=== PATIENT | female | born 1995 | race Caucasian/White ===

== ENCOUNTER 2020-09-07 14:11 | Emergency (ER) | payer SELFPAY ==
[2020-09-07 14:31] VITALS: BP 120/76; PULSE 103; RESP 20; TEMP 37.6; O2SAT 100
--- NOTE | 2020-09-07 15:21 | ED.SKABFB ---
HPI - Skin/Abscess/Foreign Bdy General Chief complaint: Skin/Abscess/Foreign Body Stated complaint: Boil on Stomach Time Seen by Provider: 09/07/20 14:35 Source: patient and RN notes reviewed Mode of arrival: ambulatory Limitations: no limitations History of Present Illness HPI narrative: Patient presents today complaining of redness and pain to her left lower abdomen x3 to 4 days. Reports the area continues to worsen since onset. Currently rates her pain 8/10. States she had a similar area 3 to 4 months ago that resolved on its own without any intervention. Denies history of boils, staph infections, MRSA. She has not tried any at home interventions prior to arrival. MD complaint: abscess/boil Related Data Home Medications Medication Instructions Recorded Confirmed Wellbutrin 09/07/20 acyclovir 09/07/20 lamotrigine 09/07/20 Allergies Allergy/AdvReac Type Severity Reaction Status Date / Time No Known Allergies Allergy Verified 09/07/20 14:26 Review of Systems Review of Systems: Narrative: CONSTITUTIONAL: Denies body aches, fever, chills, or sweats. EYES: Denies visual changes, redness, or discharge. ENT: Denies rhinorrhea, congestion, sore throat, or otalgia. CARDIOVASCULAR: Denies chest pain, palpitations, or edema. RESPIRATORY: Denies cough or dyspnea. GASTROINTESTINAL: Denies abdominal pain, nausea, vomiting, or diarrhea. GENITOURINARY: Denies dysuria or hematuria. SKIN: Denies rash, itching, or wounds.+ Possible abscess to left lower abdomen MUSCULOSKELETAL: Denies back pain, joint pain, or myalgia. NEUROLOGIC: Denies headache, numbness, tingling, or weakness. PSYCH: Denies depression or anxiety. [facility] Past Medical History Medical History (Updated 09/07/20 @ 15:52 by Adelina Hernandez, JAKE, BC) Bipolar disorder Surgical History Surgical History (Updated 09/07/20 @ 15:52 by Adelina Hernandez, JAKE, BC) History of cholecystectomy Social History Social History Gender identity (if verbalized by the patient): Female Comments At time of signature, I have reviewed and agree with nursing past medical, surgical, social and family history unless otherwise noted. Please see nursing chart for further information. There is no relevant family history pertinent to the presenting complaint Exam Narrative: Exam Narrative: GENERAL: Well-appearing, well-nourished, and in no acute distress. HEAD: Normocephalic, atraumatic. EYES: EOMI. No redness or drainage. Conjunctivae normal. ENT: Mucous membranes pink and moist. NECK: Normal AROM. CHEST: No respiratory distress. EXTREMITIES: Normal range of motion. No edema. SKIN: Warm, dry, no rash. Capillary refill normal. Normal skin turgor. 3 x 3 cm area of erythema with a 2 x 2 centimeter area of fluctuance to the left lower abdomen. Tender to palpation. NEURO: No focal deficits. Alert and oriented x3. Gait steady. PSYCH: Normal affect. No signs of depression or anxiety. Course Vital Signs Vital signs: Vital Signs Temperature 99.7 F H 09/07/20 14:31 Pulse Rate 103 H 09/07/20 14:31 Respiratory Rate 20 09/07/20 14:31 Blood Pressure 120/76 09/07/20 14:31 Pulse Oximetry 100 09/07/20 14:31 Temperature 99.7 F H 09/07/20 14:31 Pulse Rate 103 H 09/07/20 14:31 Respiratory Rate 20 09/07/20 14:31 Blood Pressure 120/76 09/07/20 14:31 Pulse Oximetry 100 09/07/20 14:31 Reviewed Procedures Abscess I/D abdomen: Date of Incision: 09/07/20 Time of Incision: 15:00 Side (if applicable): left Local Anesthetic: lidocaine 1% and with epi Amount of anesthesia used (mL): 4 Technique: incised with #11 blade Amount of fluid expressed (mL): 3 Irrigation: Yes Packing used?: iodoform I&D Results: Pus and Blood Abcess I&D Additional Comments: Dressed with Band-Aid. MDM - Skin/Abscess/Foreign Bdy Differential Diagnosis Differential diagnosis: Likely abscess of skin
== END 2020-09-07 15:28 | disposition home or self-care (01) ==
PROVIDERS: Emergency Provider Nurse Practitioner; PCP Family Medicine
DX: L02.211 Cutaneous abscess of abdominal wall (principal); F31.9 Bipolar disorder, unspecified
CPT/HCPCS: 10061; 87070; 87205; 99203; G0463

== ENCOUNTER 2020-09-10 11:14 | Emergency (ER) | payer SELFPAY ==
[2020-09-10 11:32] VITALS: BP 120/68; PULSE 102; RESP 16; TEMP 37; O2SAT 98
--- NOTE | 2020-09-10 11:45 | PC.NURSE ---
provider, this rn, and rn from previous visit did wound evalution and is getting better. has small slit opening with small amount of drainage. has redenss surrounding but has decreased in size per pt and rn.
--- NOTE | 2020-09-10 11:53 | ED.SKABFB ---
HPI - Skin/Abscess/Foreign Bdy General Chief complaint: Skin/Abscess/Foreign Body Stated complaint: INCISION Source: patient and RN notes reviewed Limitations: no limitations History of Present Illness HPI narrative: The obese patient, on minimal meds, presents with wound check. Patient states couple days ago she had an abdominal, belt line abscess I&D with some packing. She complains of pain [as she was only treated with OTC preparations] and need for wound check. No increasing redness, discharge, streaking [she is on sulfa antibiotics], and preceding nurse indicates it looks improved Related Data Home Medications Medication Instructions Recorded Confirmed Wellbutrin 09/07/20 acyclovir 09/07/20 lamotrigine 09/07/20 Allergies Allergy/AdvReac Type Severity Reaction Status Date / Time No Known Allergies Allergy Verified 09/07/20 14:26 Review of Systems Review of Systems: Narrative: General/Constitutional: No weight loss,fever Eyes: N0: Redness,discharge Ears/Nose/Throat: No: Epistaxis,ear discharge Respiratory: Denies: Hemoptysis Gastrointestinal: No Vomiting, Bleeding-rectal Skin: No Lumps, eruption Neurologic: No Focal Weakness,Sz Hematologic: Denies: Petechiae/Purpura Psychiatric: No: Suicida ideationl All Other Systems: Reviewed and Negative [facility] Past Medical History Medical History (Updated 09/10/20 @ 11:56 by Sean Coates MD) Bipolar disorder Surgical History Surgical History (Updated 09/07/20 @ 15:52 by Adelina Hernandez, [facility], ) History of cholecystectomy Social History Social History Gender identity (if verbalized by the patient): Female Comments At time of signature, agree with nursing past medical, surgical, social and family history. There is no relevant family history pertinent to the presenting complaint Exam Narrative: Exam Narrative: General Appearance: Well appearing, No distress Conjunctiva clear Ears: External ear normal Nose: Normal nose Mouth/Throat: Normal appearing, Normal lips, Supple Respiratory: Airway patent, No respiratory distress Skin: Well-healing anterior abdominal wall abscess without fluctuance/induration;warm, Dry Abdomen: Soft, Non-tender, Musculoskeletal: Full ROM Neurological: A&O x3, CN II-X intact Psychiatric: Normal mood, Normal affect Course Vital Signs Vital signs: Vital Signs Temperature 98.6 F 09/10/20 11:32 Pulse Rate 102 H 09/10/20 11:32 Respiratory Rate 16 09/10/20 11:32 Blood Pressure 120/68 09/10/20 11:32 Pulse Oximetry 98 09/10/20 11:32 Temperature 98.6 F 09/10/20 11:32 Pulse Rate 102 H 09/10/20 11:32 Respiratory Rate 16 09/10/20 11:32 Blood Pressure 120/68 09/10/20 11:32 Pulse Oximetry 98 09/10/20 11:32 Discharge Plan Discharge Clinical Impression: Wound check, abscess, History of abdominal abscess Patient Disposition: Home, Self-Care Condition: Stable Instructions: Abscess Follow-up (ED) Prescriptions: New acetaminophen-codeine 300-30 mg tablet 1 tablet PO HS PRN (Reason: pain) Qty: 10 RF: 0 No Action Wellbutrin RF: 0 acyclovir RF: 0 lamotrigine RF: 0 sulfamethoxazole-trimethoprim [Bactrim DS] 800-160 mg tablet 1 tablet PO Q12H 10 Days Qty: 20 RF: 0 Follow-up/Referrals: Alea,Humberto Blackmon MD [Primary Care Provider] -
== END 2020-09-10 12:03 | disposition home or self-care (01) ==
PROVIDERS: Emergency Provider Emergency Medicine; PCP Family Medicine
DX: L02.211 Cutaneous abscess of abdominal wall (principal); F31.9 Bipolar disorder, unspecified
CPT/HCPCS: 99213; G0463

== ENCOUNTER 2021-11-30 15:50 | Emergency (ER) | payer MEDICARE, SELFPAY ==
--- NOTE | 2021-11-30 15:59 | ED.EAR ---
HPI - Ear Problem General Chief complaint: Upper Respiratory Infection Stated complaint: Ear Pain Time Seen by Provider: 11/30/21 15:59 Source: patient Mode of arrival: ambulatory Limitations: no limitations History of Present Illness HPI Narrative: 26 y/o female presented for c/o right ear pain and sore throat for over 2 days. Rates ear pain 04/15, stating it only feels better when it pops. Has been using Chloraseptic spray. Denies gomez, n/v/d/f/c. Complaint: ear pain Related Data Home Medications Medication Instructions Recorded Confirmed bupropion HCl 150 mg 24 hr tablet, tablet PO 11/30/21 extended release lamotrigine 25 mg tablet tablet 11/30/21 Allergies Allergy/AdvReac Type Severity Reaction Status Date / Time No Known Allergies Allergy Verified 09/07/20 14:26 Review of Systems Review of Systems: CONSTITUTIONAL: Denies malaise, chills, or fever. EYES: Denies visual changes, redness, or discharge. ENT: Denies rhinorrhea, congestion, sinus pain Reports ear pain and sore throat. CARDIOVASCULAR: Denies chest pain, palpitations, or edema. RESPIRATORY: Denies cough or dyspnea. GASTROINTESTINAL: Denies abdominal pain, nausea, vomiting, diarrhea SKIN: Denies rash or itching. MUSCULOSKELETAL: Denies myalgia. NEUROLOGIC: Denies headache. All systems reviewed & are unremarkable except as noted in HPI and below PMFSH Past Medical History Medical History Bipolar disorder Surgical History Surgical History History of cholecystectomy Social History Social History Gender identity (if verbalized by the patient): Female Comments At time of signature, agree with nursing past medical, surgical, social and family history. There is no relevant family history pertinent to the presenting complaint Exam Narrative: GENERAL: Well-appearing EYES: conjunctivae clear ENT: Nares clear. Mucous membranes moist. Endorses right ear pain on exam; TM pearly whitney with dull light reflex and erythematous canals bilaterally; no tragal tenderness. Oropharynx erythematous without lesions. Tonsils enlarged without exudate, no drooling, no hoarseness, no trismus, uvula midline. NECK: Supple. No lymphadenopathy CHEST: Clear to auscultation, breath sounds equal. HEART: Regular rate and rhythm. No murmur heard. SKIN: Warm, dry, no rash. NEURO: Alert and oriented x3. PSYCH: Normal mood and affect Course Course Emergency Course: Patient is aware of diagnosis, understands and agrees to treatment plan. Anticipatory guidance given. Patient agrees to follow-up as directed and is aware of reasons to seek care at the emergency department. Portions of this record may have been created with voice recognition software Level of Care: Express Care Visit Vital Signs Vital signs: Vital Signs Temperature 97.3 F L 11/30/21 16:00 Pulse Rate 111 H 11/30/21 16:00 Respiratory Rate 18 11/30/21 16:00 Blood Pressure 136/85 11/30/21 16:00 Pulse Oximetry 100 11/30/21 16:00 Oxygen Delivery Room Air 11/30/21 16:00 Temperature 97.3 F L 11/30/21 16:00 Pulse Rate 111 H 11/30/21 16:00 Respiratory Rate 18 11/30/21 16:00 Blood Pressure 136/85 11/30/21 16:00 Pulse Oximetry 100 11/30/21 16:00 Oxygen Delivery Room Air 11/30/21 16:00 Reviewed Medical Decision Making MDM Narrative Medical decision making narrative: strep and covid negative. Advised supportive measures and signs/symptoms to go to the ER. Patient is non-toxic appearing and is in no distress. Patient is appropriate for outpatient treatment and follow-up. Differential Diagnosis Differential Diagnosis: Coronavirus, strep pharyngitis, allergic rhinitis, upper respiratory tract infection, sinusitis, rhinosinusitis, nasopharyngitis, viral pharyngitis, otitis media, otitis externa, eusta
[2021-11-30 16:00] VITALS: BP 136/85; PULSE 111; RESP 18; TEMP 36.3; O2SAT 100
== END 2021-11-30 16:40 | disposition home or self-care (01) ==
PROVIDERS: Emergency Provider Nurse Practitioner Family; PCP Family Medicine
DX: H92.01 Otalgia, right ear (principal); J02.9 Acute pharyngitis, unspecified; Z20.822 Contact with and (suspected) exposure to COVID-19; F31.9 Bipolar disorder, unspecified
CPT/HCPCS: 87081; 87426; 87880; 99212; C9803; G0463

== ENCOUNTER 2023-02-21 13:24 | Emergency (ER) | payer MEDICARE, SELFPAY ==
--- NOTE | 2023-02-21 13:31 | ED.FEMALEGU ---
HPI - Female Genitourinary General Chief complaint: Urogenital-Female Stated complaint: STD testing, test Time Seen by Provider: 02/21/23 13:30 Source: patient Mode of arrival: ambulatory Limitations: no limitations History of Present Illness HPI Narrative: Stacy is a 28-year-old female patient presenting to the clinic today for STI screen and requesting a test. She reports she noticed some fluttering in her left lower abdomen this morning and would like to have test. Last menstrual period was February 10. States last sexual in her course was last night. Reports that her significant other complained that it felt like he was having sex in between 2 bricks and she is concerned that she may have some changes in her female anatomy. States that she had a bowel movement a few days ago and felt as though her rectum was protruding due to that and she had to push it back in. States she would just like to have her pelvic area looked at as well as STD testing Related Data Home Medications Medication Instructions Recorded Confirmed No Home Medications 02/21/23 02/21/23 Allergies Allergy/AdvReac Type Severity Reaction Status Date / Time Latex, Natural Rubber Allergy Rash Verified 02/21/23 14:07 Review of Systems Review of Systems: Pertinent positives per HPI. Patient denies any fever, chills, rash, headache, visual changes, dizziness, cough, runny nose, sore throat, shortness of breath, chest pain, palpitations, nausea, vomiting, diarrhea, constipation, abdominal pain, or any urinary issues. [facility] Past Medical History Medical History Bipolar disorder Surgical History Surgical History History of cholecystectomy Social History Social History Gender identity (if verbalized by the patient): Female Comments At the time of my signature, I reviewed and agree with the nursing past medical, surgical, social, and family history. There is no relevant family history pertinent to the patient complaint. Exam Narrative: General: Well-developed, morbidly obese, in no apparent distress Head: Normocephalic, atraumatic. Cardio: Regular rate and rhythm, s1 and s2 normal, no murmur appreciated. Resp: Clear to auscultation bilaterally, no rhonchi, rales, wheezing or rubs. Abdomen: Soft, pliable, bowel sounds present in all quadrants, non-tender to palpation, no CVAT tenderness. : Pelvic exam performed with (Rosa CARROLL) at bedside. Verbal consent obtained from patient. Normal external female genitalia without lesions or masses, Urinary meatus: patent without discharge, Vagina: No lesions, masses, white discharge, Cervix: pink without mass, lesions, discharge, or tenderness. Adnexa: without palpable mass or tenderness. Course Course Emergency Course: Portions of this record may have been created with voice recognition software. Level of Care: Express Care Visit Vital Signs Vital signs: Vital signs reviewed MDM - Female Genitourinary MDM Narrative Medical decision making narrative: At the time of visit patient is resting comfortably on the exam table. Pelvic exam was performed and the patient's anatomy appeared to be normal. Preg test was performed and was negative. Urine sample was obtained and sent to lab for STD testing. Supportive measures were discussed with the patient she voiced understanding discharge instructions agrees to treatment plan. Differential Diagnosis Differential diagnosis: Likely bacterial vaginosis, trichomoniasis, cervicitis, ovarian cyst and vaginitis Discharge Plan Discharge Clinical Impression: Screen for STD (sexually transmitted disease) Patient Disposition: Home, Self-Care Condition: Stable Instructions: Antibiotic Form, Sexually Transmitted Diseases (ED), Safe
[2023-02-21 13:42] VITALS: BP 123/77; PULSE 97; RESP 18; TEMP 36.6; O2SAT 100
[2023-02-21 14:04] VITALS: BP 123/77; PULSE 97; RESP 18; TEMP 36.6; O2SAT 100
--- NOTE | 2023-02-21 14:29 | PC.NURSE ---
pelvic exam set up 1414. pelvic exam done by credit assistant with rn at bedside. pegasus called for spec p/u.
[2023-02-21 21:02] LABS: Trichomonas Vag PCR DETECTED (NOT DETECTE)
[2023-02-21 21:46] LABS: Chlamydia trachomatis NOT DETECTED (NOT DETECTE); Neisseria gonorrhoeae PCR DETECTED (NOT DETECTE)
== END 2023-02-21 14:31 | disposition home or self-care (01) ==
PROVIDERS: Emergency Provider Nurse Practitioner Family; PCP Family Medicine
DX: Z11.3 Encounter for screening for infections with a predominantly sexual mode of transmission (principal)
CPT/HCPCS: 81003; 81025; 87491; 87591; 87661; 99214; G0463

== ENCOUNTER 2023-02-25 13:24 | Emergency (ER) | payer MEDICARE, SELFPAY ==
[2023-02-25 13:35] VITALS: BP 136/80; PULSE 93; RESP 18; TEMP 36.3; O2SAT 100
--- NOTE | 2023-02-25 13:51 | ED.FEMALEGU ---
HPI - Female Genitourinary General Chief complaint: Urogenital-Female Stated complaint: f/u after test results Time Seen by Provider: 02/25/23 13:56 Source: patient and RN notes reviewed Mode of arrival: ambulatory Limitations: no limitations History of Present Illness HPI Narrative: 28-year-old female returned for treatment of gonorrhea infection. She was seen on 02/21/2023 for STI screen and preg test. STI testing positive for gonorrhea and trichomonas. Patient currently denies vaginal discharge, dysuria, hematuria, abdominal pain. Related Data Allergies Allergy/AdvReac Type Severity Reaction Status Date / Time Latex, Natural Rubber Allergy Rash Verified 02/25/23 13:39 Review of Systems Review of Systems: CONSTITUTIONAL: Denies body aches, fever, chills, or sweats. CARDIOVASCULAR: Denies chest pain, palpitations, or edema. RESPIRATORY: Denies cough or dyspnea. GASTROINTESTINAL: Denies abdominal pain, nausea, vomiting, or diarrhea. GENITOURINARY: Denies dysuria, frequency, urgency, hematuria, flank pain SKIN: Denies rash, itching, or wounds. MUSCULOSKELETAL: Denies back pain or myalgia. [facility] Past Medical History Medical History Bipolar disorder Surgical History Surgical History History of cholecystectomy Social History Social History Gender identity (if verbalized by the patient): Female Comments At time of signature, I have reviewed and agree with nursing past medical, surgical, social and family history unless otherwise noted. Please see nursing chart for further information. There is no relevant family history pertinent to the presenting complaint Exam Narrative: GENERAL: Well-appearing and in no acute distress. HEAD: Normocephalic EYES: EOMI. . ENT: Mucous membranes pink and moist. NECK: Normal AROM. Supple. CHEST: No respiratory distress. Clear to auscultation. HEART: Regular rate and rhythm. ABDOMEN: Soft, nontender, nondistended, normal active bowel sounds. No CVA tenderness SKIN: Warm, dry, no rash. NEURO: No focal deficits. Alert and oriented x3. Gait steady. PSYCH: Flat affect. Irritable. Course Course Emergency Course: Patient is aware of diagnosis, understands and agrees to treatment plan. Anticipatory guidance given. Patient agrees to follow-up as directed and is aware of reasons to seek care at the emergency department. Portions of this record may have been created with voice recognition software Level of Care: Express Care Visit Vital Signs Vital signs: Vital Signs Temperature 97.3 F L 02/25/23 13:35 Pulse Rate 93 02/25/23 13:35 Respiratory Rate 18 02/25/23 13:35 Blood Pressure 136/80 02/25/23 13:35 Pulse Oximetry 100 02/25/23 13:35 Oxygen Delivery Room Air 02/25/23 13:35 Temperature 97.3 F L 02/25/23 13:35 Pulse Rate 93 02/25/23 13:35 Respiratory Rate 18 02/25/23 13:35 Blood Pressure 136/80 02/25/23 13:35 Pulse Oximetry 100 02/25/23 13:35 Oxygen Delivery Room Air 02/25/23 13:35 Reviewed MDM - Female Genitourinary MDM Narrative Medical decision making narrative: Patient returned for treatment of gonorrhea today. Advised Rx metronidazole will be sent. Patient appeared irritable throughout the encounter. States she was told she would receive all the medications for treatment here today. Advised metronidazole is a 1week course of treatment, she states she does not have transportation etc. Attempted to provide education regarding abstaining during and after treatment, test of cure, and f/u with obgyn/pcp. However patient did not appear receptive to the information and started looking directly at her phone. Remained irritable. IM ceftriaxone given. Patient informed the nurse she gets 'irritable with pain,' and after the injection she was adamant to leave
[2023-02-25] MEDS: cefTRIAXone 500 MG, LIDOCAINE HCL 1% LOCAL INJ 1 ML IM (14:05)
== END 2023-02-25 14:11 | disposition home or self-care (01) ==
PROVIDERS: Emergency Provider Nurse Practitioner Family; PCP Family Medicine
DX: A54.9 Gonococcal infection, unspecified (principal); A59.9 Trichomoniasis, unspecified
CPT/HCPCS: 96372; 99213; G0463; J0696

== ENCOUNTER 2023-03-12 12:06 | Emergency (ER) | payer MEDICARE, SELFPAY ==
[2023-03-12] VITALS (12 sets, daily range): BP systolic 107–139; BP diastolic 66–88; PULSE 78–100; RESP 18–20; TEMP 37; O2SAT 97–100
--- NOTE | ~2023-03-12 | CT_ITS ---
EXAMINATION: CT abdomen pelvis w con DATE: 03/12/2023 14:07 INDICATION: LLQ, RLQ and suprapubic tenderness TECHNIQUE: Computed tomography (CT) of the abdomen and pelvis was performed with 100 mL Omnipaque-350 intravenous contrast. Automated exposure control and iterative reconstruction technique were employe d. The dose-length product was 1508.32 mGy-cm. COMPARISON: None. FINDINGS: Lower thorax: Unremarkable Liver: Normal. Biliary/Gallbladder: Gallbladder is absent. No bile duct dilation. Pancreas: No mass or duct dilation. Spleen: Normal. Adrenals:No mass. Kidneys: No suspicious mass, obstructing stone, or hydronephrosis. GI tract: No small or large bowel dilation. Normal appendix. Mesentery/Peritoneum: No ascites, mass, or free air. Retroperitoneum: No mass. Pelvis: 2.5 cm left ovarian lesion containing macroscopic fat and coarse calcification. Normal uterus . Normal right ovary. Normal bladder. Soft Tissues: Soft tissues and body wall unremarkable. Bones: No acute osseous finding. IMPRESSION: No acute abdominopelvic process detected. 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 Reviewed, dictated and finalized at location K.
--- NOTE | 2023-03-12 12:58 | ED.NAVMDI ---
HPI - Nausea/Vomiting/Diarrhea General Chief complaint: Nausea/Vomiting/Diarrhea Stated complaint: n/v Time Seen by Provider: 03/12/23 12:27 History of Present Illness HPI Narrative: 28-year-old female with a history of cholecystectomy presents for evaluation for nausea and vomiting since this morning. Patient states she is vomited multiple times since 7 AM. Reports she went to bed feeling normal last night. She is also reporting intermittent left lower quadrant, right lower quadrant and suprapubic abdominal pain. She denies fever, body aches or chills, chest pain or shortness of breath, flank pain, dysuria or hematuria, vaginal discharge or lesions. She does states she was treated for gonorrhea and trichomonas within the past month. States she took the full course of antibiotics. Reports that her partner tested negative for STDs and therefore was treated, which she has been having multiple episodes of unprotected sex. States her period started this morning, LMP prior was 02/10/23. She received a milligrams of Zofran in route, however still reports nausea. She reports multiple episodes of diarrhea this morning which is not unchanged from her baseline since she had a cholecystectomy. Denies other abdominal surgeries. Related Data Allergies Allergy/AdvReac Type Severity Reaction Status Date / Time Latex, Natural Rubber Allergy Rash Verified 03/12/23 12:12 Review of Systems Review of Systems: CONSTITUTIONAL: Denies fever, chills EYES: Denies visual changes, redness, or discharge. ENT: Denies rhinorrhea, congestion, sore throat, or otalgia. CARDIOVASCULAR: Denies chest pain, palpitations, or edema. RESPIRATORY: Denies cough or dyspnea. GASTROINTESTINAL: See HPI GENITOURINARY: See HPI SKIN: Denies rash or itching. MUSCULOSKELETAL: Denies back pain, joint pain, or myalgia. NEUROLOGIC: Denies headache, numbness, dizziness, or weakness. PSYCHIATRIC: Denies anxiety or depression. [facility] Past Medical History Medical History Bipolar disorder Surgical History Surgical History History of cholecystectomy Social History Social History Gender identity (if verbalized by the patient): Female Exam Narrative: GENERAL: Well-appearing, in no acute distress. Patient resting comfortably in exam bed. She is pleasant and conversational. HEAD: Normocephalic EYES: PERRLA ENT: Nares clear. Mucous membranes moist. Oropharynx without tonsillar hypertrophy exudate or other lesions. NECK: Supple. CHEST: No respiratory distress. Clear to auscultation, no adventitious breath sounds. HEART: Regular rate and rhythm. No murmur heard. Normal peripheral pulses. ABDOMEN: Normal active bowel sounds. Abdomen soft with mild tenderness in the left lower quadrant, suprapubic region and right lower quadrant. No guarding, rebound or rigidity. No CVA tenderness. : Deferred EXTREMITIES: Normal range of motion. No edema. SKIN: Warm, dry, no rash. NEURO: No focal deficits. Alert and oriented x3. PSYCH: Normal mood and affect. Course Vital Signs Vital signs: Vital Signs Temperature 98.6 F 03/12/23 12:06 Pulse Rate 95 03/12/23 12:06 Respiratory Rate 18 03/12/23 12:06 Blood Pressure 139/80 03/12/23 12:06 Pulse Oximetry 98 03/12/23 12:06 Oxygen Delivery Room Air 03/12/23 12:06 Temperature 98.6 F 03/12/23 12:06 Pulse Rate 95 03/12/23 12:06 Respiratory Rate 18 03/12/23 12:06 Blood Pressure 139/80 03/12/23 12:06 Pulse Oximetry 98 03/12/23 12:06 Oxygen Delivery Room Air 03/12/23 12:06 MDM - Nausea/Vomiting/Diarrhea MDM Narrative Medical decision making narrative: 28-year-old female with a history of cholecystectomy reports for evaluation for nausea and vomiting since this morning, see HPI for further history. Vitals are st
[2023-03-12] MEDS: SODIUM CHLORIDE 0.9% IV 1,000 ML 999 ML IV CONT (13:29)
[2023-03-12] MEDS: METOCLOPRAMIDE HCL INJ 10 MG/2 ML VIAL IV PUSH (13:30)
[2023-03-12 13:40] LABS: Basophils Percent Auto 0.2 % (0.2-1.2); Eosinophils Absolute Auto 0.1 K/mm3 (0-0.3); Eosinophils Percent Auto 0.5 % (0-4.4); Hemoglobin 13.1 g/dL (12.0-15.0); Immature Granulocyte Absolute 0.06 K/mm3 (0.00-0.031); Immature Granulocyte Percent A 0.5 % (0-0.5); Lymphocytes Absolute Auto 0.87 K/mm3 (0.9-3.2); Lymphocytes Percent Auto 6.6 % (18.3-44.2); Mean Corpuscular HGB Conc 31.2 g/dl (32-36); Mean Corpuscular Hemoglobin 27.1 pg (26-34); Mean Corpuscular Volume 86.8 fl (80-100); Mean Platelet Volume 9.8 fl (7.4-10.4); Monocytes Absolute Auto 0.4 K/mm3 (0.1-0.6); Monocytes Percent Auto 3.3 % (2.6-8.5); Neutrophils Absolute Auto 11.7 K/mm3 (1.3-6.7); Neutrophils Percent Auto 88.9 % (45.5-73.1); Platelet Count Result 291 k/mm3 (150-375); Red Blood Count 4.84 M/mm3 (4.2-5.4); Red Cell Distribution Width 13.3 % (11.5-14.5); White Blood Count 13.1 K/mm3 (4.5-10.0)
[2023-03-12 13:41] LABS: Appearance Urine Cloudy (Clear); Bilirubin Urine Negative (Negative); Blood Urine 1+ (Negative); Color Urine Yellow (Yellow); Glucose Urine UA Negative (Negative); Ketones Urine Negative (Negative); Leukocyte Esterase Ur Negative LEU/UL (Negative); Nitrate Urine Negative (Negative); Protein Urine Negative (Negative); Urobilinogen Urine 0.2 mg/dL (<2.0); pH Urine 5.5 (5.0-9.0)
[2023-03-12 13:42] LABS: Bacteria Urine None Seen /hpf; Non Pathogenic Casts 0-2; Squamous Epithelial Cell Urine Occasional /hpf (Few); WBC Urine 0-5 /hpf
[2023-03-12 13:47] LABS: Add Urine Microscopic? YES
[2023-03-12 13:49] LABS: Alanine Aminotransferase 31 U/L (6-35); Albumin Level 4.4 g/dL (3.5-5.1); Alkaline Phosphatase 64 U/L (38-126); Anion Gap 8 mmol/L (8-16); Aspartate Amino Transferase 32 U/L (14-36); Bilirubin,Total 0.6 mg/dL (0.2-1.3); Blood Urea Nitrogen 13 mg/dL (7-17); Calcium 8.6 mg/dL (8.4-10.2); Carbon Dioxide 24 mmol/L (22-30); Chloride 107 mmol/L (98-107); Estimated Glomerular Filt Rate > 60; Glucose 109 mg/dL (65-110); Lipase 50 U/L (23-300); Potassium 4.3 mmol/L (3.4-5.0); Sodium 139 mmol/L (137-145)
[2023-03-12 15:05] LABS: Trichomonas Vag PCR NOT DETECTED (NOT DETECTE)
[2023-03-12 15:28] LABS: Chlamydia trachomatis NOT DETECTED (NOT DETECTE); Neisseria gonorrhoeae PCR NOT DETECTED (NOT DETECTE)
[2023-03-12] MEDS: diphenhydrAMINE HCl INJ 50 MG/ML VIAL 25 MG IV PUSH (15:48)
== END 2023-03-12 16:31 | disposition home or self-care (01) ==
PROVIDERS: Emergency Provider Physician Assistant; PCP Family Medicine
DX: K52.9 Noninfective gastroenteritis and colitis, unspecified (principal); Z11.3 Encounter for screening for infections with a predominantly sexual mode of transmission; Z90.49 Acquired absence of other specified parts of digestive tract; D27.1 Benign neoplasm of left ovary
CPT/HCPCS: 36415; 74177; 80053; 81001; 81025; 83690; 85025; 87491; 87591; 87661; 96361; 96374; 96375; 99284; J1200; J2765; J7030; Q9967

== ENCOUNTER 2023-08-19 17:03 | Emergency (ER) | payer MEDICARE, SELFPAY | END 2023-08-19 17:30 | disposition home or self-care (01) | PROVIDERS: Emergency Provider Nurse Practitioner Family | DX: J06.9 Acute upper respiratory infection, unspecified (principal) | CPT/HCPCS: 81025; 87081; 87880; 99213; G0463 ==

== ENCOUNTER 2023-08-21 16:21 | Emergency (ER) | payer MEDICARE, SELFPAY ==
[2023-08-21 16:40] VITALS: BP 142/83; PULSE 92; RESP 18; TEMP 37.7; O2SAT 97
--- NOTE | 2023-08-21 17:06 | ED.URI ---
HPI - URI/Sore Throat General Chief Complaint: Upper Respiratory Infection Stated Complaint: Sore Throat Time Seen by Provider: 08/21/23 16:51 Source: patient and RN notes reviewed Mode of arrival: ambulatory Limitations: no limitations History of Present Illness HPI Narrative: Patient presents today with a one-week history of sore throat, nasal congestion, bilateral ear pain, cough, fatigue. Denies fever or shortness of breath. She has been taking Delsym, Chloraseptic, and 200 mg of ibuprofen without much relief. Patient was seen 2 days ago at [facility]. Her rapid strep was negative at that time and her culture is still pending. She did not wait for discharge instructions and states she was not told what kind of kbww-deg-ufpheiy medication to take at home. Related Data Home Medications Medication Instructions Recorded Confirmed etonogestrel 0.12 mg-ethinyl 1 vag ring vaginal MONTHLY 08/21/23 08/21/23 estradiol 0.015 mg/24 hr vaginal ring (EluRyng) phentermine 37.5 mg tablet 18.75 mg PO BID 08/21/23 08/21/23 Allergies Allergy/AdvReac Type Severity Reaction Status Date / Time Latex, Natural Rubber Allergy Rash Verified 08/21/23 16:24 Review of Systems Review of Systems: CONSTITUTIONAL: Denies body aches, fever, chills, or sweats.+ fatigue EYES: Denies visual changes, redness, or discharge. ENT: + sore throat, congestion, bilateral ear pressure CARDIOVASCULAR: Denies chest pain, palpitations, or edema. RESPIRATORY: Denies dyspnea.+ cough GASTROINTESTINAL: Denies abdominal pain, nausea, vomiting, or diarrhea. GENITOURINARY: Denies dysuria or hematuria. SKIN: Denies rash, itching, or wounds. MUSCULOSKELETAL: Denies back pain, joint pain, or myalgia. NEUROLOGIC: Denies headache, numbness, tingling, or weakness. PSYCH: Denies depression or anxiety. [facility] Past Medical History Medical History Bipolar disorder Surgical History Surgical History History of cholecystectomy Social History Social History Gender identity (if verbalized by the patient): Female Comments At time of signature, I have reviewed and agree with nursing past medical, surgical, social and family history unless otherwise noted. Please see nursing chart for further information. There is no relevant family history pertinent to the presenting complaint Exam Narrative: GENERAL: Well-appearing, well-nourished, and in no acute distress. HEAD: Normocephalic, atraumatic. EYES: EOMI. No redness or drainage. Conjunctivae normal. ENT: Mucous membranes pink and moist. Nares congested. No rhinorrhea. TMs normal bilaterally. Throat erythematous without edema or exudate. Uvula midline. NECK: Normal AROM. Supple. No lymphadenopathy. CHEST: No respiratory distress. Clear to auscultation. HEART: Regular rate and rhythm. No murmur appreciated. EXTREMITIES: Normal range of motion. No edema. SKIN: Warm, dry, no rash. Capillary refill normal. Normal skin turgor. NEURO: No focal deficits. Alert and oriented x3. Gait steady. PSYCH: Normal affect. No signs of depression or anxiety. Course Course Level of Care: Express Care Visit Vital Signs Vital signs: Vital Signs Temperature 99.8 F H 08/21/23 16:40 Pulse Rate 92 08/21/23 16:40 Respiratory Rate 18 08/21/23 16:40 Blood Pressure 142/83 H 08/21/23 16:40 Pulse Oximetry 97 08/21/23 16:40 Oxygen Delivery Room Air 08/21/23 16:40 Temperature 99.8 F H 08/21/23 16:40 Pulse Rate 92 08/21/23 16:40 Respiratory Rate 18 08/21/23 16:40 Blood Pressure 142/83 H 08/21/23 16:40 Pulse Oximetry 97 08/21/23 16:40 Oxygen Delivery Room Air 08/21/23 16:40 Reviewed MDM - URI/Sore Throat MDM Narrative Medical decision making narrative: Repeat rapid strep is negative. Cult
== END 2023-08-21 17:18 | disposition home or self-care (01) ==
PROVIDERS: Emergency Provider Nurse Practitioner
DX: J06.9 Acute upper respiratory infection, unspecified (principal)
CPT/HCPCS: 87880; 99212; G0463

== ENCOUNTER 2023-08-31 16:49 | Emergency (ER) | payer MEDICARE, SELFPAY ==
[2023-08-31 16:58] VITALS: BP 109/69; PULSE 100; RESP 16; TEMP 36.8; O2SAT 99
--- NOTE | 2023-08-31 17:00 | ED.FEMALEGU ---
HPI - Female Genitourinary General Chief complaint: Urogenital-Female Stated complaint: STD Time Seen by Provider: 08/31/23 17:01 Source: patient Mode of arrival: ambulatory Limitations: no limitations History of Present Illness HPI Narrative: 28 yo F presents for STI testing. No symptoms. Not sexually active since April. All systems reviewed and negative except as noted above. Related Data Home Medications Medication Instructions Recorded Confirmed etonogestrel 0.12 mg-ethinyl 1 vag ring vaginal MONTHLY 08/21/23 08/31/23 estradiol 0.015 mg/24 hr vaginal ring (EluRyng) phentermine 37.5 mg tablet 18.75 mg PO BID 08/21/23 08/31/23 albuterol sulfate 90 mcg/actuation See Rx Instructions .Route .COMPLEX 08/31/23 08/31/23 aerosol inhaler fluticasone propionate 50 See Rx Instructions .Route .COMPLEX 08/31/23 08/31/23 mcg/actuation nasal spray,suspension prednisone 20 mg tablet 20 mg PO DAILY 08/31/23 08/31/23 Allergies Allergy/AdvReac Type Severity Reaction Status Date / Time Latex, Natural Rubber Allergy Intermediate Rash Verified 08/31/23 16:52 benzonatate AdvReac Intermediate Nausea and Verified 08/31/23 17:23 Vomiting Review of Systems Review of Systems: CONSTITUTIONAL: Denies fever, chills, or sweats. EYES: Denies visual changes, redness, or discharge. ENT: Denies rhinorrhea, congestion, sore throat, or otalgia. CARDIOVASCULAR: Denies chest pain, palpitations, or edema. RESPIRATORY: Denies cough or dyspnea. GASTROINTESTINAL: Denies abdominal pain, nausea, vomiting, or diarrhea. GENITOURINARY: Denies dysuria or hematuria. SKIN: Denies rash or itching. MUSCULOSKELETAL: Denies back pain, joint pain, or myalgia. NEUROLOGIC: Denies headache, numbness, or weakness. PSYCHIATRIC: Denies anxiety or depression. All other systems reviewed are negative, except as documented in HPI. [facility] Past Medical History Medical History Bipolar disorder Surgical History Surgical History History of cholecystectomy Social History Social History Gender identity (if verbalized by the patient): Female Comments At time of signature, agree with nursing past medical, surgical, social and family history. There is no relevant family history pertinent to the presenting complaint. Exam Narrative: GENERAL: This is a well-nourished, well-developed patient, in no apparent distress. HEAD: normocephalic, atraumatic. EYES: PERRL. Sclera clear/white. Vision is grossly intact. EARS: External ears normal NOSE: External nose normal NECK: Neck supple, non-tender without lymphadenopathy, masses or thyromegaly. CARDIOVASCULAR: Regular rate and rhythm without murmurs, gallops, or rubs. RESPIRATORY: Clear to auscultation. Breath sounds equal bilaterally. No wheezes, rales, or rhonchi. SKIN: warm, Dry, intact with no suspicious lesions or rash, good texture and turgor. NEURO: awake, alert, and oriented to person, place and time. There were no obvious focal neurologic abnormalities. EXTREMITIES: No joint tenderness, effusion, or edema noted. Course Course Level of Care: Express Care Visit Vital Signs Vital signs: Vital Signs Temperature 36.8 C 08/31/23 16:58 Pulse Rate 100 08/31/23 16:58 Respiratory Rate 16 08/31/23 16:58 Blood Pressure 109/69 08/31/23 16:58 Pulse Oximetry 99 08/31/23 16:58 Oxygen Delivery Room Air 08/31/23 16:58 Temperature 36.8 C 08/31/23 16:58 Pulse Rate 100 08/31/23 16:58 Respiratory Rate 16 08/31/23 16:58 Blood Pressure 109/69 08/31/23 16:58 Pulse Oximetry 99 08/31/23 16:58 Oxygen Delivery Room Air 08/31/23 16:58 Reviewed MDM - Female Genitourinary MDM Narrative Medical decision making narrative: Patient is aware of diagnosis, understands and ag
[2023-08-31 20:11] LABS: Trichomonas Vag PCR DETECTED (NOT DETECTE)
[2023-08-31 20:42] LABS: Chlamydia trachomatis NOT DETECTED (NOT DETECTE); Neisseria gonorrhoeae PCR NOT DETECTED (NOT DETECTE)
== END 2023-08-31 17:35 | disposition home or self-care (01) ==
PROVIDERS: Emergency Provider Nurse Practitioner Family
DX: A59.9 Trichomoniasis, unspecified (principal); Z11.3 Encounter for screening for infections with a predominantly sexual mode of transmission; Z20.2 Contact with and (suspected) exposure to infections with a predominantly sexual mode of transmission
CPT/HCPCS: 87491; 87591; 87661; 99214; G0463

== ENCOUNTER 2023-09-22 11:23 | Emergency (ER) | payer MEDICARE, SELFPAY ==
[2023-09-22 11:55] VITALS: BP 135/80; PULSE 102; RESP 20; TEMP 36.1; O2SAT 99
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
== END 2023-09-22 14:15 | disposition home or self-care (01) ==
PROVIDERS: Emergency Provider Emergency Medicine; PCP Obstetrics & Gynecology
DX: S36.63XA Laceration of rectum, initial encounter (principal); Z90.49 Acquired absence of other specified parts of digestive tract; X58.XXXA Exposure to other specified factors, initial encounter
CPT/HCPCS: 99283

== ENCOUNTER 2024-06-27 14:48 | Emergency (ER) | payer MEDICARE, SELFPAY ==
[2024-06-27 14:57] VITALS: BP 136/82; PULSE 82; RESP 14; TEMP 36.2; O2SAT 100
--- NOTE | 2024-06-27 14:57 | ED.DENTAL ---
HPI - Dental/Oral General Chief complaint: Dental/Oral Stated complaint: Dental Pain Time Seen by Provider: 06/27/24 14:58 Source: patient, RN notes reviewed and old records reviewed Mode of arrival: ambulatory Limitations: no limitations History of Present Illness HPI Narrative: Patient presents complaining of right-sided tooth pain that began in the middle of the night tonight. She has not taken anything for her symptoms. She denies any injury or trauma. No fever. No associated facial swelling. Denies any drainage from the gingiva. Related Data Home Medications ?Medication ?Instructions ?Recorded ?Confirmed ?Last Taken ?Type etonogestrel 0.12 mg-ethinyl 1 vag ring vaginal MONTHLY 08/21/23 08/31/23 Unknown History estradiol 0.015 mg/24 hr vaginal ring (Darrel) phentermine 37.5 mg tablet 18.75 mg PO BID 08/21/23 08/31/23 Unknown History Allergies Allergy/AdvReac Type Severity Reaction Status Date / Time Latex, Natural Rubber Allergy Intermediate Rash Verified 06/27/24 14:52 benzonatate AdvReac Intermediate Nausea and Verified 06/27/24 14:52 Vomiting Review of Systems Review of Systems: All systems reviewed & are unremarkable except as noted in HPI and below Constitutional: Constitutional: Reports no additional constitutional complaints ENT: Reports system reviewed and no additional complaints, except as documented and Reports dental pain Cardiovascular: Cardiovascular: Reports no additional cardiovascular complaints Respiratory: Respiratory: Reports no additional respiratory complaints Gastrointestinal: Gastrointestinal: Reports no additional gastrointestinal complaints [facility] Past Medical History Medical History Bipolar disorder Surgical History Surgical History History of cholecystectomy Social History Social History Gender identity (if verbalized by the patient): Female Comments At the time of my signature, I reviewed and agree with the nursing past medical, surgical, social, and family history. There is no relevant family history pertinent to the patient complaint. Exam Const: General: cooperative, no acute distress, alert and awake Orientation/consciousness: oriented to person, oriented to place and oriented to time HENMT: Head: normal to inspection Ears: TM's normal bilaterally Mouth: Yes moist mucous membranes Teeth and gingiva: caries (2 right upper molars) Resp: Effort & Inspection: normal respiratory effort and able to speak in complete sentences Auscultation: clear to auscultation bilaterally, no crackles, no rales, no rhonchi and no wheezes Cardio: Palpation: normal PMI Rate: regular rate Rhythm: regular rhythm Heart sounds: S1 normal heart sound present and S2 normal heart sound present Neuro: General: oriented to person, oriented to place and oriented to time Cranial nerves: Yes CN's II-XII intact bilaterally Psych: Appearance: grossly normal Thought process: Normal thought process present Insight: Good insight present (Psych) Judgement: Good judgement present (Psych) Course Course Level of Care: Express Care Visit Vital Signs Vital signs: Reviewed MDM - Dental/Oral MDM Narrative Medical decision making narrative: Patient not taking anything for her tooth pain. No sign of infection. She was advised to call a dentist and treat symptoms in the meantime Discharge instructions reviewed with patient, as well as provided in writing per nursing staff. The instructions also include specific and strict return/GO TO THE ER as well as f/u information. All questions have been answered, and the patient deny any further questions with discharge and discharge plan. Some parts of this dictation were generated by voice recognition software and may contain typographical and/or grammatical inaccuracies. Differential Diagnosis Differential diagnosis: Likely dental caries, toothache and dental abscess Medical Records Attestation: I reviewed the patient's medical records. Discharge Plan Discharge Clinical Impression: Dental caries Patient Disposition: Home, Self-Care Condition: Stable Instructions: Antibiotic Form, Toothache (ED) Additional Instructions: Use medications as prescribed. Follow-up with primary care provider. Follow-up with dentist. Emergency department for new or worse symptoms Patient Language: Grenadian Prescriptions: New ibuprofen 800 mg tablet 800 mg PO TID PRN (Reason: pain) Qty: 30 0RF No Action phentermine 37.5 mg tablet 18.75 mg PO BID etonogestrel-ethinyl estradiol [EluRyng] 0.12-0.015 mg/24 hr ring 1 vag ring VAGINAL MONTHLY Follow-up/Referrals: Alea,Humberto Blackmon MD [Primary Care Provider] - 1 Week Time of Disposition: 15:05
== END 2024-06-27 15:10 | disposition home or self-care (01) ==
PROVIDERS: Emergency Provider Nurse Practitioner Family; PCP Family Medicine
DX: K02.9 Dental caries, unspecified (principal)
CPT/HCPCS: 99213; G0463

== ENCOUNTER 2024-12-25 13:28 | Outpatient (CLI) | payer MEDICARE, MEDICAID, SELFPAY ==
--- NOTE | ~2024-12-25 | XR_ITS ---
EXAM/ PROCEDURE: XR lumbar spine 2-3V - 12/25/2024 13:50 CDT HISTORY: 29 years old Female with low back pain COMPARISON: None available TECHNIQUE: Three view(s) FINDINGS/ IMPRESSION: There are no fractures or dislocations.Intervertebral disc spaces are within normal limits. Cholecystectomy clips are seen. Reviewed, dictated and finalized at location A.
--- OUTSIDE RECORDS SUMMARY | 2024-12-25 13:34 | XMS_ITS | Encounter Summary ---
Author Organization [facility] Address [address] [place] [id number] Care Team Providers Care Rug Scratcher Name Role Phone Antelmo Snell MD Primary Care Provider [phone] Sallie Zuniga NP-C Primary Care Provider [phone] Humberto Cosby MD Primary Care Provider [phone] Encounter Details Date Type Department Care Team ([facility] st Contact Info) Description 08/20/2017 Abstract [facility] CONVERSION [address] [place] [address] , Generic Conversion, Social History Tobacco Use Types Packs/Day Years Used Date Smoking Tobacco: Never Assessed Comments Unknown Sex and Gender Information Value Date Recorded Sex Assigned at Female 08/03/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 Gender Identity Not on file Sexual Orientation Not on file documented as of this encounter Plan of Treatment Not on file documented as of this encounter Visit Diagnoses Not on filedocumented in this encounter Additional Health Concerns Infection Onset Date Last Indicated Resolved Time COVID-19 Rule Out 08/11/2020 08/11/2020 08/12/2020 7:16 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
--- OUTSIDE RECORDS SUMMARY | 2024-12-25 13:34 | XMS_ITS | Clinical Summary ---
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 Gender Identity Not on file Sexual Orientation Not on file Plan of Treatment Health Maintenance Due Date Last Done Comments Hepatitis C Virus (HCV) Screening 1997 Pap Smear 2018 Influenza Immunization (#1) 02/05/202404/06, 04/29/2015, 03/22/2011, Additional history exists SARS-COV-2 Immunization (2023- season) 2024 Respiratory Syncytial Virus (RSV) Immunization (Adult) (1 - 1-dose 75+ series) 01/03/2072 Hepatitis B Immunization Completed 998, 1997, 1997 Meningococcal Immunization (ACWY) Aged Out 04/06/2016 No longer eligible based on patient's age to complete this topic DTaP/Tdap/Td Immunization Discontinued 2018, 04/29/2015, 04/21/2010, Additional history exists TdaP Immunization Completed 08/30/2018, , 04/21/2010 Human Papillomavirus (HPV) Immunization Discontinued 11/10/2018, 05/09/2013, 01/10/2013 Pneumococcal Immunization Combined Aged Out No longer eligible based on patient's age to complete this topic Rotavirus Immunization Aged Out No lo nger eligible based on patient's age to complete this topic
--- OUTSIDE RECORDS SUMMARY | 2024-12-25 13:34 | XMS_ITS | Encounter Summary ---
Author Organization [facility] Address [address] [place] [id number] Care Team Providers Care Refrigeration Manager Name Role Phone Sallie ZunigaC Primary Care Provider [phone] Humberto Cosby MD Primary Care Provider [phone] Encounter Details Date Type Department Care Team (Late st Contact Info) Description 08/06/2020 Prep for Procedure [facility] Pre-Admission Testing [address] [facility] [facility] [address] [place] [address] Jackson Trimble MD [address], [place] [id number] Social History Tobacco Use Types Packs/Day Years Used Date Smoking Tobacco: Every Day Cigarettes 0.3 6 Smokeless Tobacco: Former Comments:about 3 packs a mon th of cigarettes. Alcohol Use Standard Drinks/Week Comments Not Currently 0 (1 standard drink = 0.6 oz pur e alcohol) about 1 drink in 6 months Comments No Sex and Gender Information Value Date Recorded Sex Assigned at Female 08/03/2024 3:48 PM ACCOUNT LEADER Legal Sex Female 9:33 PM ACCOUNT LEADER Gender Identity Not on file Sexual Orientation Not on file COVID-19 Exposure Response Date Recorded In the last month, have you been in contact with someone who was confirmed or suspected to have Coronavirus / COVID-19? No / Unsure 07/28/2020 1:35 PM ACCOUNT LEADER documented as of this encounter Functional Status * RETIRED Are you deaf or do you have serious difficulty hearing Answer Date of Assessment Author Status No 08/31/2018 2:16 PM CDT Activ e * RETIRED Are you blind or do you have serious difficulty seeing, even when wearing glasses? Answer Date of Assessment Author Status No 08/31/2018 2:16 PM CDT Activ e * Do you have serious difficulty walking or climbing stairs? Answer Date of Assessment Author Status No 08/31/2018 2:16 PM OUMART Norma Stanford RN Active * Do you have difficulty dressing or bathing? Answer Date of Assessment Author Status No 08/31/2018 2:16 PM OUMART Norma Stanford RN Active * Because of a physical, mental, or emotional condition, do you have difficulty doing errands alone such as visiting a doctor's office or shopping? Answer Date of Assessment Author Status No 08/28/2018 8:42 PM Nancy Shepard RN Active documented as of this encounter Mental Status * Because of a physical, mental, or emotional condition, do you have serious difficulty concentrating, remembering, or making decisions? Answer Entry Date Author Status No 08/31/2018 2:16 PM Norma Arriaga RN Active documented in this encounter Plan of Treatment Not on file documented as of this encounter Results * PRE-SURGICAL/PRE-PROCEDURE CORONAVIRUS (COVID 19) (08/11/2020 10:21 AM ACCOUNT LEADER) CORONAVIRUS SARS COV 2 PCR (RESP) NOT DETECTED NOT DETECTED 08/12/2020 7:16 PM ACCOUNT LEADER [email or web address] Comment: A Not Detected (negative) test result for this test means that SARS- CoV-2 RNA was not present in the specimen above the limit of detection. A negative result does not rule out the possibility of COVID-19 and should not be used as the sole basis for treatment or patient management decisions. If COVID-19 is still suspected, based on exposure history together with other clinical findings, re-testing should be considered in consultation with public health authorities. Laboratory test results should always be considered in the context of clinical observations and epidemiological data in making a final diagnosis and patient management decisions. Please review the Fact Sheets and FDA authorized labeling available for health care providers and patients using the following websites: [email or web address]/fact-sheet2 [email or web address]://[email or web address]/[email or web address]/[email or web address]/ fact-sheet2 This test has been authorized by the FDA under an Emergency Use Authorization (EUA) for use by authorized laboratories. Due to the current public health emergency, [facility] is receiving a high volume of samples from a wide variety of swabs and media for COVID-19 testing. In order to serve patients during this public health crisis, samples from appropriate clinical sources are being tested. Negative test results derived from specimens received in non-commercially manufactured viral collection and transport media, or in media and sample collection kits not yet authorized by FDA for COVID-19 testing should be cautiously evaluated and the patient potentially subjected to extra precautions such as additional clinical monitoring, including collection of an additional specimen. Methodology: Nucleic Acid Amplification Test (NAAT) includes RT-PCR or TMA Additional information about COVID-19 can be found at the [facility] website: www.[employer]/Covid19. Test performed at [email or web address] [place] [address] [place] [address] Director: ROSA KENNY DO,MPH FIRST TEST NO 08/11/2020 9:06 AM [facility] EMPLOYED IN HEALTHCARE NO 08/11/2020 9:06 AM [facility] SYMPTOMATIC DEFINED BY CDC NO 08/11/2020 9:06 AM [facility] DATE OF SYMPTOM ONSET NO 08/11/2020 11:42 AM [facility] HOSPITALIZATION STATUS NO 08/11/2020 9:06 AM [facility] PATIENT IN ICU NO 08/11/2020 9:06 AM [facility] RESIDENT OF [facility] NO 08/11/2020 9:06 AM [facility] NOT 08/11/2020 9:06 AM [facility] PATIENT'S RACE WHITE OR 08/11/2020 9:06 AM [facility] ETHNICITY NONHISPANIC 08/11/2020 9:06 AM ACCOUNT LEADER [facility] SOURCE (QST) NASOPHARYNGEAL SWAB 08/11/2020 9:06 AM ACCOUNT LEADER [facility] NASOPHARYNGEAL SWAB / Unknown 08/11/2020 10:21 AM ACCOUNT LEADER us Jackson Trimble MD MICROBIOLOGY - GENERAL ORDERABL ES Final Result [facility] [address] [place] [address], [email or web address] [address] [place] [address], documented in this encounter Visit Diagnoses Diagnosis Preop examination- Primary Preoperative examination, unspecified documented in this encounter Additional Health Concerns Infection Onset Date Last Indicated Resolved Time COVID-19 Rule Out 08/11/2020 08/11/2020 08/12/2020 7:16 PM ACCOUNT LEADER documented as of this encounter Care Teams Refrigeration Manager Relationship Specialty Start Date End Date Sallie Zuniga NP-C [address] [place] [address] PCP - General FAMILY PRACTICE 12/29/18 08/13/20 Humberto Cosby MD [address] [place] [id number] PCP - General FAMILY PRACTICE 08/14/20 documented as of this encounter
--- OUTSIDE RECORDS SUMMARY | 2024-12-25 13:34 | XMS_ITS | Clinical Summary ---
Author Organization [facility] Address [address] [place] [address] Care Team Providers Care Railroad Car Repairman Name Role Phone Humberto Cosby MD Primary Care Provider [phone] Allergies Active Allergy Reactions Criticality Noted Date Comments Benzonatate Nausea and Vomiting 09/21/2023 Latex Itching 08/28/2018 Says the reaction occurred when cervix was checked before childbirth 08/29/2018 Has been tolerating latex condoms Medications lamoTRIgine 150 MG tablet Take 150 mg by mouth daily. Active buPROPion SR 150 MG 12 hr tablet Take 150 mg by mouth 2 (two) times daily. Active ACYCLOVIR OR Take 500 mg by mouth 2 (two) times daily as needed. (dose as given to me by patient during phone interview 07/28/2020 at 1345) Active Active Problems Problem Noted Date Diagnosed Date Encounter for elective induction of labor ([facility]/ [facility]) 08/28/2018 Gonorrhea 08/17/2018 Overview (08/17/2018): Pt re-treated with rocephin and azithromycin and flagyl for trich. IOL rescheduled to 08/28 @ 2200. Labor precautions reviewed. Trichomoniasis 08/17/2018 Overview (08/17/2018): Re-treated and culture done in office. Will repeat culture in one week. Pelvic pressure in , antepartum ([facility]) 07/24/2018 Immunizations Immunization Administration Dates Next Due Afluria 36 MONTHS+ (Prefille d Syringe IIV4) 08/30/2018(Deferred: Patient/family declined - Pt decided she did not want the flu shot) Tdap (Boostrix) 08/30/2018 Family History Medical History Relation Comments Diabetes Father Heart Attack Father Heart Disease Father Hypertension Father Stroke Father Cancer Mother Diabetes Mother Relation Status Comments Father (Age 53) of brain swelling, heart disease, heart attack Mother (Age 52) of cancer , colon, liver, spine Sister Alive Son 1 Alive Son 2 Alive Social History Tobacco Use Types Packs/Day Years Used Date Smoking Tobacco: Former Cigarettes 0.3 6 Smokeless Tobacco: Former Tobacco Cessation:Counseling Given: Not Answered Comments:about 3 packs a month of cigarettes. Alcohol Use Standard Drinks/Week Comments Not Currently 0 (1 standard drink = 0.6 oz pur e alcohol) about 1 drink in 6 months Comments No Sex and Gender Information Value Date Recorded Sex Assigned at Female 08/03/2024 3:48 PM CONSTRUCTION ADMINISTRATIVE ASSISTANT Legal Sex Female 9:33 PM CONSTRUCTION ADMINISTRATIVE ASSISTANT Gender Identity Not on file Sexual Orientation Not on file Last Filed Vital Signs Vital Sign Reading Time Taken Comments Blood Pressure 146/86 08/03/2024 3:48 PM CONSTRUCTION ADMINISTRATIVE ASSISTANT Pulse 100 08/03/2024 3:48 PM CONSTRUCTION ADMINISTRATIVE ASSISTANT Temperature 36.5 C (97.7 F) 08/03/2024 3:48 PM CONSTRUCTION ADMINISTRATIVE ASSISTANT Respiratory Rate 18 08/03/2024 3:48 PM CONSTRUCTION ADMINISTRATIVE ASSISTANT Oxygen Saturation 100% 08/03/2024 3:48 PM CONSTRUCTION ADMINISTRATIVE ASSISTANT Inhaled Oxygen Concentration - - Weight 130 kg (286 lb 9.6 oz) 08/03/2024 3:48 PM CONSTRUCTION ADMINISTRATIVE ASSISTANT Height 157.5 cm (5' 2) 08/03/2024 3:48 PM CONSTRUCTION ADMINISTRATIVE ASSISTANT Body Mass Index 52.42 08/03/2024 3:48 PM CONSTRUCTION ADMINISTRATIVE ASSISTANT Plan of Treatment Health Maintenance Due Date Last Done Comments Cervical Cancer Screening Pap Smear (Age 21 to 29) Every 3 Years 1997 Cervical Cancer Screening 1997 Annual Physical 01/03/2000 Hepatitis C 2015 Hepatitis B Vaccines (1 of 3 - 19+ 3-dose series) 01/03/2016 COVID-19 Vaccine ( - 2023- season) 2024 DTaP, Tdap and Td Vaccines (7 - Td or Tdap) 08/30/2028 08/30/2018, 06/29/2001, 04/18/1998, Additional history exists Meningococcal Vaccine Aged Out 04/06/2016 No km josiah eligible based on patient's age to complete this topic HPV Vaccines Completed 11/10/2018, 12/0 09/2012, 01/10/2013 Meningococcal B Vaccine Aged Out No l onger eligible based on patient's age to complete this topic Pneumococcal Vaccine: Pediatrics (0 to 5 Years) and At-Risk Patients (6 to 49 Years) Aged Out No longer eligible based on patient's age to complete this topic RSV Immunizations Under 20 Months Aged Out No longer eligible based on patient's age to complete this topic Insurance [facility] Advance Directives * Full Code (Latest Code Status on File) Date Activated Date Inactivated Comments 08/28/2018 8:40 PM 08/29/2018 8:51 AM * Full Code Date Activated Date Inactivated Comments 07/24/2018 2:59 PM 07/24/2018 8:50 PM Care Teams Railroad Car Repairman Relationship Specialty Start Date End Date Humberto Cosby MD PCP - General FAMILY PRACTICE 08/14/20
--- OUTSIDE RECORDS SUMMARY | 2024-12-25 13:34 | XMS_ITS | Referral Summary ---
Author Organization [facility] Address [address] [place] [address] Care Team Providers Care Defensive Line Coach Name Role Phone Humberto Cosby MD Primary Care Provider [phone] Nino Fischer MD Unavailable Allergies Active Allergy Reactions Criticality Noted Date Comments Latex Itching Low 08/28/2018 Says the reaction occurred when cervix was checked before childbirth 08/29/2018 Has been tolerating latex condoms Medications ACYCLOVIR ORAL Take 500 mg by mouth 2 (two) times a day as needed Active buPROPion SR (WELLBUTRIN SR) 150 mg 12 hr tablet Take 150 mg by mouth 2 (two) times a day Active lamoTRIgine (LaMICtal) 150 mg tablet Take 150 mg by mouth daily Active zolpidem (AMBIEN) 5 mg tabletIndicatio ns:Sleep-Onset Insomnia Take 1 tablet (5 mg total) by mouth nightly as needed for sleep for up to 1 dose 1 tablet 08/04/2021 Active Active Problems Problem Noted Date Diagnosed Date Snoring 08/04/2021 Assessment & Plan (08/04/2021 11:17 AM FUEL PILOT ENGINEER): The patient presents with snoring, daytime hypersomnia and witnessed apneas. I have recommended proceeding with a nocturnal polysomnogram with a split night protocol if necessary and no MSLT. Patient will follow up here in 3 months. Dyspnea on exertion 08/04/2021 Assessment & Plan (08/04/2021 11:17 AM FUEL PILOT ENGINEER): The patient has a history of asthma and dyspnea with exertion. I will check full PFTs and follow with a methacholine challenge if the PFTs are normal. I have also ordered a chest x-ray. Gonorrhea 08/17/2018 Overview (08/04/2021): Pt re-treated with rocephin and azithromycin and flagyl for trich. IOL rescheduled to 08/28 @ 2200. Labor precautions reviewed. Trichomoniasis 08/17/2018 Overview (08/04/2021): Re-treated and culture done in office. Will repeat culture in one week. Pelvic pressure in , antepartum 019 Social History Tobacco Use Types Packs/Day Years Used Date Smoking Tobacco: Every Day Cigarettes 0.5 8 Smokeless Tobacco: Never AUDIT-C Answer Date Recorded Q1: How often do you have a drink containing alc ohol? Monthly or less 08/04/2021 Q2: How many drinks containi ng alcohol do you have on a typical day when you are drinking? 1 or 2 08/04/2021 Q3: How often do you have si x or more drinks on one occasion? Never 08/04/2021 Comments Unknown Sex and Gender Information Value Date Recorded Sex Assigned at Not on file Legal Sex Female 8:47 PM FUEL PILOT ENGINEER Gender Identity Not on file Sexual Orientation Not on file Last Filed Vital Signs Vital Sign Reading Time Taken Comments Blood Pressure 138/88 08/04/2021 10:43 AM FUEL PILOT ENGINEER Pulse 100 08/04/2021 10:43 AM FUEL PILOT ENGINEER Temperature 36.4 C (97.6 F) 08/04/2021 10:43 AM FUEL PILOT ENGINEER Respiratory Rate 18 08/04/2021 10:43 AM FUEL PILOT ENGINEER Oxygen Saturation 97% 08/04/2021 10:43 AM FUEL PILOT ENGINEER Inhaled Oxygen Concentration - - Weight 139.7 kg (308 lb) 08/04/2021 10:43 AM FUEL PILOT ENGINEER Height 160 cm (5' 3) 09/16/2016 6:38 PM CDT Body Mass Index 54.56 09/16/2016 6:38 PM CDT Plan of Treatment Not on file Insurance MEDICARE MEDICARE HMO MEDICARE HMO Care Teams Defensive Line Coach Relationship Specialty Start Date End Date Humberto Cosby MD [address] [address] PCP - General 04/03/20 Nino Fischer MD [address] [address] Consulting Physician Internal Medicine 11/04/22
--- OUTSIDE RECORDS SUMMARY | 2024-12-25 13:34 | XMS_ITS | Clinical Summary ---
Author Organization [facility] Address [address] [place] [address] Care Team Providers Care Agent Spa Desk Name Role Phone Humberto Cosby MD Primary Care Provider [phone] Nino Fischer MD Unavailable [phone] Allergies Active Allergy Reactions Criticality Noted Date [...] 08/04/2021 Assessment & Plan (08/04/2021 11:17 AM JAILER): The patient presents with snoring, daytime hypersomnia and witnessed apneas. I have recommended proceeding with a nocturnal polysomnogram with a split night protocol if necessary and no MSLT. Patient will follow up here in 3 months. Dyspnea on exertion 08/04/2021 Assessment & Plan (08/04/2021 11:17 AM JAILER): The patient has a history of asthma [...] week. Pelvic pressure in , antepartum 019 Surgical History Surgery Date Site/Laterality Comments US ABDOMEN COMPLETE W LIVER DOPPLER (C) 02/22/2018 R ight Family History Medical History Relation Name Comments Diabetes Father Heart disease Father Heart failure Father Stroke Father Cancer Mother Diabetes Mother Relation Name Status Comments Father Mother Social History Tobacco Use Types Packs/Day Years [...] on file Legal Sex Female 8:47 PM JAILER Gender Identity Not on file Sexual Orientation Not on file Obstetrics History Last Filed Vital Signs Vital Sign Reading Time Taken Comments Blood Pressure 138/88 08/04/2021 10:43 AM JAILER Pulse 100 08/04/2021 10:43 AM JAILER Temperature 36.4 C (97.6 F) 08/04/2021 10:43 AM JAILER Respiratory Rate 18 08/04/2021 10:43 AM JAILER Oxygen Saturation 97% 08/04/2021 10:43 AM JAILER Inhaled Oxygen Concentration - - Weight 139.7 kg (308 lb) 08/04/2021 10:43 AM JAILER Height 160 cm (5' 3) 09/16/2016 6:38 PM CDT Body Mass Index 54.56 09/16/2016 6:38 PM CDT Plan of Treatment Health Maintenance Due Date Last Done Comments Cervical Cancer Screening 1997 Depression Screening 1997 Hepatitis C Screening 1997 Regular Well Visit/Exam 18-64 2015 Pneumococcal vaccine <65 (1 of 2 - PCV) 01/03/2016 Influenza Vaccine (Season Ended) 2025 04/21/2017, 04/29/2015, 03/22/2011, Additional history exists DTaP/Tdap/Td Vaccine (9 - Td or Tdap) 08/30/2028 08/30/2018, 04/29/2015, 04/21/2010, Additional history exists Hepatitis B Screening Completed 1997 , 1997, 1997 Varicella Vaccines Completed 03/22/2011, 04/21/2010 HPV Vaccines Completed 11/10/2018, 09/2012, 01/10/2013 Insurance MEDICARE WELL[employer] MEDICARE HMO WE[employer] MEDICARE HMO Care Teams Agent Spa Desk Relationship Specialty Start Date End Date Humberto Cosby MD [address] [address] PCP - General 04/03/20 Nino Fischer MD [address] [address] Consulting Physician Internal Medicine 11/04/22
--- OUTSIDE RECORDS SUMMARY | 2024-12-25 13:34 | XMS_ITS | Data Portability ---
Author Organization [facility] , [facility] Address [address] [place] [address] Care Team Providers Care Aluminum Boats Assembler Name Role Phone [facility] Hotel Engineer Assessment No assessment recorded. Plan of Treatment Reminders Order Date Submit Date Provider Last Modified By Organization Details Last Modified Time Details Appointments None record ed. Lab hsv (1+2) igg, serum 2022 023 [facility], [address] [place], [address], 3 15:05:27 CT + NG DNA, PCR, unspec ified specim en 2022 023 [facility], [address] [place], [address], 3 17:39:45 unlist ed lab - Pap reflex hold 2022 023 [place] [address] [facility], [address] [place], [address], 3 13:07:25 pap, LB 2022 023 [facility], [address] [place], [address], 3 13:56:41 Referral infert ility reprod uctive endocr inolog y referr al - BMI 51.4, states she's been trying for 4.5yrs , & her partne r has childr en. 2023 024 [email or web address] [facility], [address] [place], [address], 4 11:32:02 genera l surgeo n referr al - int and ext hemrro ids failed meds and supp 2023 024 [email or web address] [facility], [address], [place], [address], 4 13:19:09 gastro entero logist referr al - dumpin g syndro me after gall bladde r 2023 024 [email or web address] Xiao Wang MD, [address], [place], [address], 4 13:19:10 Procedures None record ed. Surgeries None record ed. Imaging US, transv aginal 2023 024 spattummaint yr [facility], [address] [place], [address], 4 17:58:24 US, transv aginal [email or web address] [place] [address], [address] [place], [address], 3 17:28:51 US, transv aginal 2022 023 [email or web address] [facility], [address] [facility], [place], [address], 3 13:49:35 Medication Orders phente rmine 37.5 mg tablet 2023 024 [facility], [address] [place], [address], 4 12:06:02 Twirla 120 mcg-30 mcg/24 hr transd ermal patch 2023 024 [facility], [address] [place], [address], 4 12:58:34 phente rmine 37.5 mg tablet 2023 024 [facility] [address] [place], [address], 4 12:37:31 NuvaRi ng 0.12 mg-0.0 15 mg/24 hr vagina l 2023 024 [email or web address] [facility] #2510, [address] [place], [address], 4 12:58:29 phente rmine 37.5 mg tablet 2022 023 [facility] [address] [place], [address], 3 11:26:23 Patient TargetsNo targets recorded. Patient Instructions Encounter Date Encounter Id Patient Instructions Last Modified By Organization Details Last Modified Time 03/18/2023 [id number] body mass index: care instructions Not available 03/18/2023 15:35:14 learning about depression screening Not available 03/18/2023 15:35:15 A healthy lifestyle: care instructions Not available 03/18/2023 15:35:14 substance use disorder: care instructions Not available 03/18/2023 15:35:15 10/10/2023 [id number] patch for control: care instructions Not available 10/10/2023 12:04:35 Reason for Referral General Surgeon Referral for External hemorrhoids int and ext hemrroids failed meds and supp Referring Physician: Nino Fischer, GREEN MARKETING ANALYST, Encounter Date: 10/10/2023 Records Analyst Referral for 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 A posit modesto resul t canno t disti nguis h betwe en recen t and past infec tion. If recen t HSV infec tion is suspe cted but the resul ts are negat modesto or equiv ocal, the assay shoul d be repea eileen in 4-6 weeks . The perfo rmanc e emeka cteri stics of the assay have not been estab lishe d for pedia tric popul ation s, immun ocomp romis ed patie nts, or neona lexis scree jacquelyn. For addit ional infor santhosh reeves e refer to http: //campbell cedillo.Que stDia gnost ics.c om/fa q/FAQ 118 (This link is being provi ded for infor ced nal/ educa doug l purpo ses only. ) NO COLLE CTION DATE RECEI FAUSTINO. WE HAVE USED THE DATE THE SPECI MEN WAS RECEI FAUSTINO BY THIS LABOR ATORY THE COLLE CTION DATE. IF THIS IS INCOR RECT, PLEAS E CONTA CT CLIEN T SERVI EYAL. PHONE ERNESTINE R: [phone] Not Available [facility] [address] [place], [address], 03/24/2023 15:05:27 03/07/2003/09/2023 VAGIN ITIS PLUS STD PANEL bacterial vaginosis BV neg negati ve normal Not Available [address], [address], 03/09/2023 14:18:28 03/07/2003/09/2023 VAGIN ITIS PLUS STD PANEL gerry species C. spp POS negati ve abnormal Not Available [address], [address], 03/09/2023 14:18:28 03/07/2003/09/2023 VAGIN ITIS PLUS STD PANEL gerry glabrata C. gla neg negati ve normal Not Available [address], [address], 03/09/2023 14:18:28 03/07/2003/09/2023 VAGIN ITIS PLUS STD PANEL trichomonas vaginalis CV/TV TRICH neg negati ve normal Not Available [address], [address], 03/09/2023 14:18:28 03/07/2003/09/2023 VAGIN ITIS PLUS STD PANEL chlamydia trachomatis CT neg negati ve normal This repor t is inten ded for us in clini yandy monit oring and manag ement of krishna hahn. It is not inten ded for use in medic al-le gal appli catio n. Not Available [facility] [address] [place] [address], [address], 03/09/2023 14:18:28 03/07/2003/09/2023 VAGIN ITIS PLUS STD PANEL neisseria gonorrhoeae GC neg negati ve normal This repor t is inten ded for us in clini yandy monit oring and manag ement of patie nts. It is not inten ded for use in medic al-le gal appli catio n. Not Available [facility] [address] [place], [address], 03/09/2023 14:18:28 03/18/2003/21/2023 CT/NG chlamydia trachomatis CT neg negati ve normal This repor t is inten ded for us in clini yandy monit oring and manag ement of patie nts. It is not inten ded for use in medic al-le gal appli catio n. Not Available [facility] [address] [place], [address], 03/21/2023 17:39:45 03/18/2003/21/2023 CT/NG neisseria gonorrhoeae GC neg negati ve normal This repor t is inten ded for us in clini yandy monit oring and manag ement of patie nts. It is not inten ded for use in medic al-le gal appli catio n. Not Available [facility] [address] [place], [address], 03/21/2023 17:39:45 03/18/2003/23/2023 THINP REP TIS PAP clinical information: normal None given Not Available [facility] [address] [place], [address], 03/23/2023 13:56:41 03/18/2003/23/2023 THINP REP TIS PAP LMP: normal None given Not Available [facility] [address], [address], 03/23/2023 13:56:41 03/18/2003/23/2023 THINP REP TIS PAP prev. Pap: normal None given Not Available [facility] [address] [place], [address], 03/23/2023 13:56:41 03/18/2003/23/2023 THINP REP TIS PAP prev. BX: normal None given Not Available [address], [address], 03/23/2023 13:56:41 03/18/2003/23/2023 THINP REP TIS PAP source: normal Cervi x Not Available [address], [address], 03/23/2023 13:56:41 03/18/2003/23/2023 THINP REP TIS PAP statement of adequacy: normal Satis facto ry for evalu ation . Endoc ervic al/tr ansfo rmati on zone compo nent prese nt. Age and/o r menst rual statu s not provi ded Not Available [address], [address], 03/23/2023 13:56:41 03/18/2003/23/2023 THINP REP TIS PAP interpretati on/result: normal Cytol ogy Resul ts: Negat modesto for intra epith elial lesio n or malig julien . Not Available [address], [address], 03/23/2023 13:56:41 03/18/2003/23/2023 THINP REP TIS PAP comment: normal This Pap test has been evalu ated with compu ter ramses eileen techn ology . Not Available [address], [address], 03/23/2023 13:56:41 03/18/2003/23/2023 THINP REP TIS PAP cytotechnolo gist: normal ABC, CT( CP) CT scree jacquelyn locat ion: [place] [address] [place] [address] Not Available [place] [address] [place], [address], 03/23/2023 13:56:41 03/18/2003/23/2023 THINP REP TIS PAP review cytotechnolo gist: normal TMK, CT( CP) CT scree jacquelyn locat ion: [place] [address] [place] [address] Not Available [place] [address] [place], [address], 03/23/2023 13:56:41 03/18/2003/23/2023 THINP REP TIS PAP comment EXPLA NATOR Y NOTE: The Pap is a scree jacquelyn test for cervi yandy cance r. It is not a diagn ostic test and is subje ct to false negat modesto and false posit modesto resul ts. It is most relia ble when a satis facto ry sampl e, regul dragan obtai flako, is submi tted with relev ant clini yandy findi ngs and histo ry, and when the Pap resul t is evalu ated along with histo ivana and curre nt clini yandy infor matio n. Not Available [place] [address] [place], [address], 03/23/2023 13:56:41 04/25/20 23 04/25/2023 US, trans vagin al No observ ation record ed. [address], [place], [address], 04/25/2023 14:08:42 08/08/19 24 08/08/2023 US, trans vagin al No observ ation record ed. [facility] [address], [place], [address], 09/16/2023 19:33:16 Result Notes None recorded. Problems No Known Problems Procedures Surgical History Date Name Laterality Status Provider Name and Address Organization Details Recorded Time 03/18/20 Date of Last Pap Smear completed Elaina Myers MD [address] [facility], [place], [address], [employer] [facility] 03/25/2023 12:44:15 Laparoscopic cholecystectomy completed Ariella Joyce [place] - [facility] 02/11/2022 12:09:30 Imaging Results None recorded. Procedure Notes None recorded. Medical Equipment None Reported. Allergies Allergen ID Allergen Name Allergen Category Reaction Reaction Severity Criticality Documentation Date Start Date Code Code System Note Provider Name and Address Organization Details Recorded Time 823599 latex environme nt,medica tion Not available Not available Not available 03/27/20212018 65348 91 RxNorm Sever ity: Moder ate; Not Available [facility] 01:19:11 Medications Name Sig Start Date Stop Date Status Note LastModified by Organization Details LastModified Time Mirena 21 mcg/24 hr (up to 8 years) 52 mg intrauter ine device 09/03 completed Mirena 20 mcg/24 hours (6 yrs) 52 mg Intraute rine Intraute rine Device RxNorm: 839401 Allow Substitu tion: False Refill Denied: No Refill Note: removed Refill DateOccu rred: 07/11/19 21 Edited by: Jackson Michaud ) on 09/04/19 Stopped by: tomas(Jackson Quiroz ) on 09/04/19 21 Not Available Not Available Not Available lidocaine HCl 10 mg/mL (1 %) injection solution As dilutant to be given with ceftriax one inj 08/26 completed Lidocain e HCl 1% Injectio n RxNorm: 8702466 Allow Substitu tion: True Refill Denied: No Not Available Not Available Not Available fluconazo le 150 mg tablet Take 1 tablet every day by oral route as directed . 04/22 completed Not Available Not Available Not Available prednison e 20 mg tablet 10/09 completed Not Available Not Available Not Available ceftriaxo ne 250 mg solution for injection 250 mg IM x 1, bring to office for injectio n 06/20 completed Ceftriax one Sodium 250mg Powder for Injectio n Allow Substitu tion: True Refill Denied: No Not Available Not Available Not Available metronida zole 500 mg tablet TAKE 1 TABLET BY MOUTH EVERY 12 HOURS 10/09 completed Not Available Not Available Not Available phentermi ne 37.5 mg tablet TAKE 1/2 OF A TABLET BY MOUTH TWICE A DAY active Not Available Not Available No t Available Vitamin tablet 1 tablet at night 01/02 completed Multivit dave Tablet RxNorm: 0 Allow Substitu tion: True Refill Denied: No Refill DateOccu rred: 02/10/20 18 Not Available Not Available Not Available bupropion HCl 100 mg tablet take 1 tablet (100 mg) by oral route 2 times per day 09/21 completed buPROPio n HCL 100 mg oral tablet RxNorm: 522580 Allow Substitu tion: False Refill Denied: No Refill DateOccu rred: 07/11/19 21 Edited by: Jackson Michaud ) on 07/11/19 21 Stopped by: Jackson Michaud ) on Not Available Not Available Not Available benzonata te 100 mg capsule 10/09 completed Not Available Not Available Not Available doxycycli ne monohydra te 100 mg capsule take 1 capsule (100 mg) by oral route 2 times per day 09/03 completed doxycycl ine monohydr ate 100 mg oral capsule RxNorm: 8397863 Allow Substitu tion: True Refill Denied: No Edited by: Jackson Michaud ) on 09/04/19 Stopped by: Jackson Michaud ) on 09/04/19 21 Not Available Not Available Not Available cephalexi n 500 mg capsule TAKE 1 CAPSULE BY MOUTH EVERY 8 HOURS 03/07 completed Not Available Not Available Not Available docusate sodium 100 mg capsule TAKE 1 CAPSULE BY MOUTH TWICE DAILY 10/09 completed Not Available Not Available Not Available albuterol sulfate HFA 90 mcg/actua tion aerosol inhaler INHALE 2 PUFFS INTO THE LUNGS EVERY 6 HOURS NEEDED 10/09 completed Not Available Not Available Not Available ondansetr on 4 mg disintegr ating tablet DISSOLVE 1 TABLET ON THE TONGUE EVERY 8 HOURS 03/18 completed Not Available Not Available Not Available fluticaso ne propionat e 50 mcg/actua tion nasal spray,michelle pension 10/09 completed Not Available Not Available Not Available lamotrigi ne 100 mg tablet take 1 tablet (100 mg) by oral route 2 times per day 09/21 completed lamoTRIg ine 100 mg oral tablet RxNorm: 956238 Allow Substitu tion: False Refill Denied: No Refill DateOccu rred: 07/11/19 Edited by: Jackson Michaud ) on 07/11/19 Stopped by: Jackson Michaud ) on Not Available Not Available Not Available Microgest in Fe 1.530 (28) 1.5 mg-30 mcg (21)/75 mg (7) tablet take 1 tablet by oral route once daily 02/11 completed Microges tin Fe 1.530 (28) 1.5 mg-30 mcg (21)/75 mg (7) oral tablet RxNorm: 9001095 Allow Substitu tion: True Refill Denied: No Edited by: Jackson Michaud ) on 09/04/19 Stopped by: tomas(Jackson Quiroz ) on Not Available Not Available Not Available azithromy tresa 500 mg tablet 2 tabs PO now. Take with food. 06/20 completed Azithrom ycin 500mg Tablet Allow Substitu tion: True Refill Denied: No Not Available Not Available Not Available bupropion HCl XL 150 mg 24 hr tablet, extended release TAKE 1 TABLET BY MOUTH EVERY DAY IN THE MORNING 10/09 completed Not Available Not Available Not Available topiramat e 50 mg tablet TAKE 1 TABLET BY MOUTH TWICE DAILY AROUND THE CLOCK 10/09 completed Not Available Not Available Not Available Flagyl 1 PO BID x 7 days 03/22 completed Flagyl 500mg Tablet RxNorm: 942702 Allow Substitu tion: True Refill Denied: No Refill Note: Auto Aged Refill DateOccu rred: 02/10/20 18 Not Available Not Available Not Available Viberzi 100 mg tablet Take 1 tablet twice a day by oral route. 10/27 completed Not Available Not Available Not Available EluRyng 0.12 mg-0.015 mg/24 hr vaginal ring INSERT 1 VAGINAL RING EVERY MONTH BY VAGINAL ROUTE 11/23 completed Not Available Not Available Not Available Twirla 120 mcg-30 mcg/24 hr transderm al patch Apply 1 patch every week by transder mal route for 21 days. 11/23 completed Not Available Not Available Not Available Vitals Date Recorded Body height Body mass index (BMI) Body weight Systolic And Diastolic Provider Name and Address Organization Details Last Updated DateTime 08/08/2023 160.02 cm 53.6 kg/m2 836263.05 g 122/80 mm[Hg] Kayleigh Mar [facility] 08/08/2023 11:28:10 Date Recorded Body height Body mass index (BMI) Body weight Body temperature Systolic And Diastolic Provider Name and Address Organization Details Last Updated DateTime 10/10/2023 160.02 cm 51.7 kg/m2 289963. 25 g 96.3 [degF] 120/74 mm[Hg] Dionne Ruiz [facility] 11:26:56 Date Recorded Body height Body mass index (BMI) Body weight Systolic And Diastolic Provider Name and Address Organization Details Last Updated DateTime 11/24/2023 160.02 cm 51.4 kg/m2 182342.22 g 130/88 mm[Hg] Earle Tolentino [facility] 11/24/2023 13:03:00 Date Recorded Body height Body mass index (BMI) Body weight Body temperature Systolic And Diastolic Provider Name and Address Organization Details Last Updated DateTime 03/18/2023 160.02 cm 54.1 kg/m2 548070. 39 g 98 [degF] 130/80 mm[Hg] Ceci Higgins [facility] 15:04:36 Date Recorded Body height Body mass index (BMI) Body weight Systolic And Diastolic Provider Name and Address Organization Details Last Updated DateTime 04/25/2023 160.02 cm 53.7 kg/m2 061559.93 g 124/74 mm[Hg] Chelsea Carpenter [facility] 04/25/2023 10:48:55 Social History Question Answer Notes LastModified by Organizat ion Details LastModified Time Tobacco Smoking Status Former Smoker Lea Mar null, [facility] 03/07/2023 12:23:10 Are You Blind Or Do You Have Difficulty Seeing? No [email or web address] Information not available 09/21/2022 Are You Deaf Or Do You Have Serious Difficulty Hearing? No [email or web address] Information not available 09/21/2022 What Type Of Diet Are You Following? REGULAR [email or web address] Information not available 09/21/2022 How Many Children Do You Have? 2 Information not available 02/11/2022 Are There Any Occupational Health Risks Where You Work? Works At [employer] Information not available 09/21/2022 What Is Your Relationship Status? Single States She Knows Savi Josse Information not available 09/21/2022 Are You Sexually Active? Yes Information not available 02/11/2022 How Much Tobacco Do You Smoke? 0.25 PPD [email or web address] Information not available 09/21/2022 Sex: Unknown Functional Status Question Answer Note LastModified by Organizat ion Details LastModified Time Do you use any illicit or recreational drugs? No [email or web address] Information not available 09/21/2022 Do you or have you ever used any other forms of tobacco or nicotine? No [email or web address] Information not available 09/21/2022 What is your level of alcohol consumption? None [email or web address] Information not available 03/07/2023 Are you currently employed? Yes Information not available 09/21/2022 Do you or have you ever used e-cigarettes or vape? Current user of electronic cigarettes Information not available 03/07/2023 What is your exercise level? Occasional [email or web address] Information not available 03/07/2023 Mental Status None recorded. Family History Relationship Description Onset Age of this Age Resolved Age Notes LastModified by Organization Details LastModified Time Father No current problems or disability [email or web address] Not available 07/2022 12:23:10 Father Myocardial infarction Not available 07/2022 12:23:10 Father Cerebrovascu lar accident [email or web address] Not available 12:23:10 Mother No current problems or disability [email or web address] Not available 07/2022 12:23:10 Mother Malignant tumor of colon Adopti ve mom [email or web address] Not available 09/21/2022 12:13:30 Mother Malignant neoplastic disease [email or web address] Not available 03/07 12:23:10 Medical History Condition Response Bipolar Disorder Y Gonorrhea Y Gynecological History Statement/Question Response Flow Heavy Date of last HPV Date of LMP 11/23/2023 HPV Vaccine N Duration of Flow (days) 6 Most Recent Mammogram Current Control Method Seeking Pre gnancy Age at Menarche 15 Date of Last Colonoscopy Frequency of Cycle (Q days) 28 Date of Last Pap Smear 03/18/2023 Obstetrics History GPAL:G 2 P 2 0 0 2 Type Value Full Term 2 Living 2 Total 2 Past Encounters Encounter ID Performer Location Encounter Start Date Encounter Closed Date Diagnosis/Indication Diagnosis SNOMED-CT Code Diagnosis ICD10 Code Diagnosis Note [id number] Ryne Mendoza CNM [facility] [address] [place] [address] 02/11/2022 11:54:26 02/11/2022 16:18:36 Menstrual period late 29167729 N92.6 [id number] ELLEN ZHANG [facility] [address] [facility] [address] 07/14/2022 13:57:26 07/15/2022 10:50:17 Missed period 82393638 N92.5 Abnormal u terine bleeding 9416892620 9100 N93.9 [id number] Nino Fischer MD [facility] [address] [place] [address] 09/21/2022 11:40:04 09/22/2022 07:35:03 Irregular periods 12805092 N92.6 back in 4-6 weeks and she has been fasting 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 Patient education given on weight management ., regular exercise. Patient handout given on Fitness, crossfit exercise emphasized . Instructed to strictly limit food calories to 12 oz/day and processed starches., and Instructed to stop the prescribed medication immediatel y if you experience chest pain or shortness of breath.. RECOMMENDA TIONS given include: a graduated exercise program ( 4-5 days per week ), stress reduction, You should follow the recommenda tions for fluid calories, limit processed starches, and diet caloric intake recommenda tions., and Encouraged at least 6 hours of sleep per night.. stressed importance of weight loss. Download cognitive therapy APPs ([employer] Rail[employer] Foreman, Debbie) FOLLOW-UP: Schedule a follow-up visit in 1 month. [id number] Nino Fischer MD [address] [address] 10/27/2022 09:53:34 10/28/2022 12:19:57 Polycystic ovaries 54257334 E28.2 L68.0 Pain of left breast 1010 109290 N64.4 will see tiona surgical for the left breast pain and US was benign Body mass index 40+ - severely obese 610117778 Z68.43 COUNSELING was provided today regarding the following topics: healthy eating habits. Patient education given on weight management ., regular exercise. Patient handout given on Fitness, crossfit exercise emphasized . Instructed to strictly limit food calories to 12 oz/day and processed starches., and Instructed to stop the prescribed medication immediatel y if you experience chest pain or shortness of breath.. RECOMMENDA TIONS given include: a graduated exercise program ( 4-5 days per week ), stress reduction, You should follow the recommenda tions for fluid calories, limit processed starches, and diet caloric intake recommenda tions., and Encouraged at least 6 hours of sleep per night.. stressed importance of weight loss. Download cognitive therapy APPs ([employer], Debbie) FOLLOW-UP: Schedule a follow-up visit in 1 month. Urinary tr act infectious disease 51295975 N39.0 Irregular periods 967449 07 N92.6 back in 4-6 weeks and she has been fasting Acanthosis nigricans 402 199585 L83 [id number] Nino Fischer MD [facility] [address] [place] [address] 03/07/2023 11:59:19 03/07/2023 15:12:32 Weight maintenance regimen 22302573 Z71.3 Body mass index 40+ - severely obese 246976157 Z68.43 COUNSELING was provided today regarding the following topics: healthy eating habits. Patient education given on weight management ., regular exercise. Patient handout given on Fitness, crossfit exercise emphasized . Instructed to strictly limit food calories to 12 oz/day and processed starches., and Instructed to stop the prescribed medication immediatel y if you experience chest pain or shortness of breath.. RECOMMENDA TIONS given include: a graduated exercise program ( 4-5 days per week ), stress reduction, You should follow the recommenda tions for fluid calories, limit processed starches, and diet caloric intake recommenda tions., and Encouraged at least 6 hours of sleep per night.. stressed importance of weight loss. Download cognitive therapy APPs ([employer], Debbie)FOLL OW-UP: Schedule a follow-up visit in 1 month. Infection by Trichomonas [id number] A59.9 1 week ago had a intramuscu lar shot for gonorrhea and the oral medication for promoters for a week states she is she is feeling better we will have her come in 4 to 6 weeks after treatment for of the gonorrhea and have her give us a urine sample discussed with her she has to give us the very first part of the void and she cannot have gone to the bathroom for 3 hours prior to the sample being given wet mount was negative Gonorrhea [id number] A54.9 Dental little Q-tip with a little saline and we will bottle and there are little test tube okay there is supposed to be on Cipro okay you yeah you but we need we will be with a gauze use there will be for a little bit so a little bit of frozen tissue in the you are being 31 weeks so when we meet [id number] is back for your heart rate more risk for breast pain right breast okay so this had good right now is 99% actual DNA test Positive because of the DNA test is not an active culture so we will attempt DNA now the nail last in your system for a little bit better I will check and see with the treatment so we just have you come back you just give us a urine sample 4 to 5 weeks after you have been treated but you cannot have gone to the bathroom for 3 hours any have to give us the very first part of your urine notes just come on and will you do it anytime of the day so we exact without using the so agreed to give it to 11:00 he can slurringOk ay still [facility] okay okay so you we will do that and then not all live absolutely and this discussed medicine that phentermin e and is okay I will get squared away alright couple things like no flour no fluids yet can do it no flour no fluids get me into seconds std check in 3-5 weeks urine and understand s that she cannot have gone to the bathroom 3 hours prior to giving us the sample and we need the very first part of her sample for the urine to be accurate and we will have her partner tested as well for STD [id number] Elaina Myers MD [facility] [address] [place] [address] 03/18/2023 14:41:17 03/18/2023 16:57:26 Gynecologic examination [id number] Z01.419 Screening for malignant neoplasm of cervix 722347287 Z12.4 Depression screening 171 446962 Z13.31 Herpes simplex 11937666 B00.9 requested testing Cyst of left ovary [id number] 5602075 N83.292 follow up in 2-4 weeks for u/s and visit Body mass index 30+ - obesity 215391626 Z68.43 [id number] Nino Fischer MD [facility] [address] [place] [address] 04/25/2023 10:22:58 04/25/2023 17:28:51 Cyst of left ovary [id number] 7263642 N83.202 jul 2022 had same size 2.3cm area and was more cystic and not as cystic now and we will rescan in 4 months and she has been ovulatinf andd this is not growing in size and discusseee dd her bmi of 53 and she has had trouble breathing after surgery (IUD removal) 2021 in december and discussed seeing PCP for this and if still the same size or pain and we will have a second opinion from the [facility] AC[facility] DUMPER and if more pains we will have her see them earlier Body mass index 40+ - severely obese 782026297 Z68.43 stressed impoortanc eof weight lossEMILIANO MEEKS was provided today regarding the following topics: healthy eating habits. Patient education given on weight management ., regular exercise. Patient handout given on Fitness, crossfit exercise emphasized . Instructed to strictly limit food calories to 12 oz/day and processed starches., and Instructed to stop the prescribed medication immediatel y if you experience chest pain or shortness of breath.. RECOMMENDA TIONS given include: a graduated exercise program ( 4-5 days per week ), stress reduction, You should follow the recommenda tions for fluid calories, limit processed starches, and diet caloric intake recommenda tions., and Encouraged at least 6 hours of sleep per night.. stressed importance of weight loss. Download cognitive therapy APPs (CBT Railcar Foreman, Debbie)FOLL OW-UP: Schedule a follow-up visit in 1 month. [id number] Nino Fischer MD [facility] [address] [place] [address] 08/08/2023 10:56:10 08/08/2023 17:58:24 Cyst of left ovary [id number] N83.Jul 2022 had same size 2.3cm area and was more cystic and not as cystic now and we will rescan in 4 months and she has been ovulatinf andd this is not growing in size and discusseee dd her bmi of 53 and she has had trouble breathing after surgery (IUD removal) 2021 in december and discussed seeing PCP for this and if still the same size or pain and we will have a second opinion from the rehabilitation institute FORMING ACID DUMPER and if more pains we will have her see them earlier Body mass index 40+ - severely obese 944793301 Z68.43 stressed impoortanc eof weight lossEMILIANO MEEKS was provided today regarding the following topics: healthy eating habits. Patient education given on weight management ., regular exercise. Patient handout given on Fitness, crossfit exercise emphasized . Instructed to strictly limit food calories to 12 oz/day and processed starches., and Instructed to stop the prescribed medication immediatel y if you experience chest pain or shortness of breath..GL P will be called in if insurance is coveredREC FERNANDO NS given include: a graduated exercise program ( 4-5 days per week ), stress reduction, You should follow the recommenda tions for fluid calories, limit processed starches, and diet caloric intake recommenda tions., and Encouraged at least 6 hours of sleep per night.. stressed importance of weight loss. Download cognitive therapy APPs (CBT Railcar Foreman, Debbie)FOLL OW-UP: Schedule a follow-up visit in 1 month. [facility] ion care management [id number] Z30.9 [id number] Nino Fischer MD [facility] [address] [place] [address] 10/10/2023 11:15:13 10/10/2023 12:42:34 Body mass index 40+ - severely obese 780771900 Z68.43 COUNSELING was provided today regarding the following topics: healthy eating habits. Patient education given on weight management ., regular exercise. Patient handout given on Fitness, crossfit exercise emphasized . Instructed to strictly limit food calories to 12 oz/day and processed starches., and Instructed to stop the prescribed medication immediatel y if you experience chest pain or shortness of breath.. RECOMMENDA TIONS given include: a graduated exercise program ( 4-5 days per week ), stress reduction, You should follow the recommenda tions for fluid calories, limit processed starches, and diet caloric intake recommenda tions., and Encouraged at least 6 hours of sleep per night.. stressed importance of weight loss. Download cognitive therapy APPs (CBT Railcar Foreman, Debbie) FOLLOW-UP: Schedule a follow-up visit in 1 month.Jayy tional diagnosis detail: BMI 50.0-59.9, adult Oral contr aceptive advice [id number] Z30.09 wants patchPt educated on risks which include but not limited to stroke, blood clot or hypertensi on Vs benefits of use, and reviewed ACHES symptoms. Importance of daily administra tion within the same 30 minute time frame reinforced to pt, and on use of condoms or abstinence if dosing schedule is interrupte d. Refills sent. Plan to F/U PRN or at next [facility].Additi onal diagnosis detail: Counseling for control, oral contracept aditi External hemorrhoids [id number] 17295 K64.4 We will have her see [facility] for this and she is having dumping syndrome after the gallbladde r especially with certain foods like salads and we will have her see farhana ordonez diagnosis detail: Hemorrhoid s, external and has tried supp and meds and still has rectal pain and bleeding Loose stool [id number] R1 9.5 Additional diagnosis detail: Loose stools [id number] ALMAZ VIZCARRA, KIRSTIN [facility] [address] [place] [address] 11/24/2023 11:53:40 11/25/2023 10:45:36 Infertility study 21687701 Z31.41 She says her LMP 11/23/23. States that Dr. Fischer did prescribe the patch but she didn't obtain d/t the cost. Used the nuva ring x1 night because she said that she was having swelling. She says that she is not on any control. Says she's been having normal periods and they are regular. Says she has lost 12lbs since being on the phentermin e. I discussed that she can't be taking phentermin e while . Says she's not taken the phentermin e in 3 days. Partner has never had a semen analysis but he has children. Has been tracking her cycles, says she's been trying for 4.5yrs to get . I discussed with her that I am unable to provide medication until a workup has been completed and since she's been trying for so long with no success she will be referred to an infertilit y specialist . She verbalizes understand ing regarding the POC. Health Concerns Section Related Observation LastModified by Organization Detai ls LastModified Time None Recorded Concern Status LastModified by Organization Details LastModified Time None Recorded Advance Directives Directive None Recorded Payers Insurance Date Sequence Insurance Name Policy Number Policy Wooten Covered Member ID Wooten Member ID Guarantor Name 03/01/2024 2 [employer] (MEDICARE REPLACEMENT/A DVANTAGE - HMO) Stacy Redman [id number] Stacy Redman 03/29/2024 3 [place] Stacy Redman [id number] Stacy Redman 03/06/2024 1 [facility] Stacy Redman [id number] Stacy Redman 03/29/2024 2 [place] Stacy Redman [id number] Stacy Redman 11/24/2023 1 [place] Stacy Redman [id number] Stacy Mohamud Feroz Notes Date Note Type Note Provider Name and Address Organization Details Recorded Time 3 text/html Annual GYNReported bypatient.History:no gynecologic complaints Menstrual cycle:Normal menses Urinary symptoms:No hematuria; No incontinence Vulva:No genital lesion Vagina:Normal vaginal discharge Breast:No breast pain; No breast lump; No nipple discharge Current Contraception: control not practiced; Requests testing for sexually transmitted infections Sexual complaints:No sexual complaints; No pain during intercourse; Normal libido Menopausal Symptoms:No menopausal symptoms; Normal vaginal lubrication Psychological symptoms:No depression; No anxiety; No PMDDNotes:Went to [place] [facility]. CT scan done. 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 Patient is an established patient who presents for a gynecological Annual Exam. The patient denies any changes in her medical history. The patient denies any changes in her family medical history.Pt is concerns about Her BMI and requesting if there any blood work she can do. currently taking phentermine. Elaina Myers MD [address] [place] [address], [phone], [facility] [employer] IV 03/18/2023 15:53:02 3 text/html Stacy presents for US on her left ovaryUS for left ovary cystcurrent issues went to the ER last month for vomiting and was told her has a teratoma on the left ovary. she has been having left side pain. Nino Fischer MD [address] [place] [address], [phone], [facility] [employer] IV 04/26/2023 11:26:31 4 text/html is a y.o. here today for weight loss management.Current weight today is Patient has lost lb since last visit.BMI today is Current diet__drinking less soda Patient ___3x exercisesType of exercise__walking Med ications for weight lossphenterinetopamate Nino Fischer MD [address] [place] [address], [phone], [facility] [employer] IV 08/08/2023 12:48:20 4 text/html Stacy is a 28y.o. here today for weight loss management.Current weight today is 291.8_Patient has lost _11 lb since last visit.BMI today is _51.7Current diet: _RegularPatient _moderate exercisesType of exercise: homework out, walkingMedications for weight loss: phentermine Nino Fischer MD [address] [place], [address], [facility] 10/10/2023 12:17:01 4 text/html Stacy 28 y/o is here for fertility consult. She has been trying to conceive for 4 1/2 yrs. She would like to discuss clomid. She states she has taken conception for her to help fertility. She is currently not taking PNV. Her current partner has children of his own and he has not semen analysis. She reports having normal monthly cycles. Her LMP was 11/22. ALMAZ VIZCARRA NP [address] [place], [address], [facility] [employer] IV 11/24/2023 16:39:23 OBGyn Episode Ob Episode Information Episode Created Date Number of Fetuses Patient Bloodtype Patient rh Status Prepregnancy Weight lbs Domestic Partner Domestic Partner Phone Father Name Software Quality Automation Engineer Status 08/21/19 22 1 CLOSED Fetus Data First Name Last Name Admitted to NICU Weight (g) Sex Living Outcome Pediatric Complications Fetus ID Race Codes Race Delivery Type M Full Term [id number] Cameron Calculation Initial Cameron Date Initial Exam Date Initial Exam Provider Initial Ultrasound Date Last Menstrual Period Date Ultra Sound Weeks Gestation 0 Eighteen To Twenty Week Cameron Update Ultra Sound Date Fundal Height At Umbil Quickening Date Ultra Sound Latest Weeks Gestation Final Cameron Confirmed By Final Cameron Confirmed Date Final Cameron Date Ultra Sound Latest Days Gestation 0 0 Menstrual History Last Menstrual Date Menses Monthly On Bcp Conception Prior Menses Frequency Hcg Plus Date Menarche Onset Age Delivery Information Delivery Date Delivery Type Labor Anesthesia Weeks Gestation Incision Type Labor Labor Length Hrs Delivered By Post Complications Tubal Sterilization Discharge Date Comments 6 39 false Discharge Information Feeding Method Contraceptive Method Maternal HG B and HCT Levels Ob Episode Information Episode Created Date Number of Fetuses Patient Bloodtype Patient rh Status Prepregnancy Weight lbs Domestic Partner Domestic Partner Phone Father Name Software Quality Automation Engineer Status 08/21/19 22 1 CLOSED Fetus Data First Name Last Name Admitted to NICU Weight (g) Sex Living Outcome Pediatric Complications Fetus ID Race Codes Race Delivery Type 3175.14 4 M Full Term [id number] Cameron Calculation Initial Cameron Date Initial Exam Date Initial Exam Provider Initial Ultrasound Date Last Menstrual Period Date Ultra Sound Weeks Gestation 0 Eighteen To Twenty Week Cameron Update Ultra Sound Date Fundal Height At Umbil Quickening Date Ultra Sound Latest Weeks Gestation Final Cameron Confirmed By Final Cameron Confirmed Date Final Cameron Date Ultra Sound Latest Days Gestation 0 0 Menstrual History Last Menstrual Date Menses Monthly On Bcp Conception Prior Menses Frequency Hcg Plus Date Menarche Onset Age Delivery Information Delivery Date Delivery Type Labor Anesthesia Weeks Gestation Incision Type Labor Labor Length Hrs Delivered By Post Complications Tubal Sterilization Discharge Date Comments 9 39 false Discharge Information Feeding Method Contraceptive Method Maternal HG B and HCT Levels
== END 2024-12-25 13:29 | disposition home or self-care (01) ==
PROVIDERS: PCP Physician Assistant; Visit Provider Physician Assistant
DX: M54.16 Radiculopathy, lumbar region (principal); Z90.49 Acquired absence of other specified parts of digestive tract
CPT/HCPCS: 72100

== ENCOUNTER 2025-02-08 13:14 | Outpatient (CLI) | payer MEDICARE, MEDICAID, SELFPAY ==
--- NOTE | ~2025-02-08 | US_ITS ---
EXAMINATION: US pelvic complete w TV DATE: 02/08/2025 15:19 INDICATION: Ovarian cyst TECHNIQUE: Multiple transabdominal and endovaginal sonographic images of the pelvis were obtained. COMPARISON: None. FINDINGS: The uterus measures 8.5 x 3.6 x 5.2 cm. The endometrial complex measures 9 mm in thickness. There are couple anechoic nabothian cysts at the cervix larger measuring 9 mm. The right ovary measures 3.0 x 2.4 x 2.0 cm. With a few small anechoic follicles measuring up to 1.1 cm. The left ovary measures 3.2 x 2.3 x 2.0 cm. There is a 2.4 cm heterogeneously echogenic mass and containing a central echogenic shadowing coarse calcification corresponding to the macroscopic fat containing left ovarian dermoid. Vascular flow identified in both ovaries on color Doppler. There is no free fluid in the pelvis. IMPRESSION: 1. 2.4 cm left ovarian teratoma. Otherwise unremarkable pelvic ultrasound.. Reviewed, dictated and finalized at location A.
--- OUTSIDE RECORDS SUMMARY | 2025-02-08 13:28 | XMS_ITS | Clinical Summary ---
Author Organization [facility] Address [address] [place] [address] Care Team Providers Care Ironworker Name Role Phone Humberto Cosby MD Primary Care Provider [phone] Nino Fischer MD Unavailable [phone] Allergies Active Allergy Reactions Criticality Noted Date [...] 08/04/2021 Assessment & Plan (08/04/2021 11:17 AM CAREER PLACEMENT SPECIALIST): The patient presents with snoring, daytime hypersomnia and witnessed apneas. I have recommended proceeding with a nocturnal polysomnogram with a split night protocol if necessary and no MSLT. Patient will follow up here in 3 months. Dyspnea on exertion 08/04/2021 Assessment & Plan (08/04/2021 11:17 AM CAREER PLACEMENT SPECIALIST): The patient has a history of asthma [...] on file Legal Sex Female 8:47 PM CAREER PLACEMENT SPECIALIST Gender Identity Not on file Sexual Orientation Not on file Obstetrics History Last Filed Vital Signs Vital Sign Reading Time Taken Comments Blood Pressure 138/88 08/04/2021 10:43 AM CAREER PLACEMENT SPECIALIST Pulse 100 08/04/2021 10:43 AM CAREER PLACEMENT SPECIALIST Temperature 36.4 C (97.6 F) 08/04/2021 10:43 AM CAREER PLACEMENT SPECIALIST Respiratory Rate 18 08/04/2021 10:43 AM CAREER PLACEMENT SPECIALIST Oxygen Saturation 97% 08/04/2021 10:43 AM CAREER PLACEMENT SPECIALIST Inhaled Oxygen Concentration - - Weight 139.7 kg (308 lb) 08/04/2021 10:43 AM CAREER PLACEMENT SPECIALIST Height 160 cm (5' 3) 09/16/2016 6:38 PM CDT Body Mass Index 54.56 09/16/2016 6:38 PM CDT Plan of Treatment Health Maintenance Due Date Last Done Comments Cervical Cancer Screening 1997 Depression Screening 1997 Hepatitis C Screening 1997 Regular Well Visit/Exam 18-64 2015 Pneumococcal vaccine <65 (1 of 2 - PCV) 01/03/2016 Influenza Vaccine (#1) 2025 7, 04/29/2015, 03/22/2011, Additional history exists DTaP/Tdap/Td Vaccine (9 - Td or Tdap) 08/30/2028 08/30/2018, 04/29/2015, 04/21/2010, Additional history exists Hepatitis B Screening Completed 1997 , 1997, 1997 Varicella Vaccines Completed 03/22/2011, 04/21/2010 HPV Vaccines Completed 11/10/2018, 09/2012, 01/10/2013 Insurance MEDICARE WELL[employer]ARE MEDICARE HMO WELL[employer] MEDICARE HMO Care Teams Ironworker Relationship Specialty Start Date End Date Humberto Cosby MD [address] [address] PCP - General 04/03/20 Nino Fischer MD [address] [address] Consulting Physician Internal Medicine 11/04/22
--- OUTSIDE RECORDS SUMMARY | 2025-02-08 13:28 | XMS_ITS | Patient Health Record ---
Author Organization [facility] Address [address] [place] [address] Care Team Providers Care Bouffant Curtain Machine Tender Name Role Phone RutJaredGladis Primary Care Provider [phone] Reason For Referral No Information Medications Medication SIG (Take, Route, Frequency, Duration) Notes Start Date End Date Status Pantoprazole Sodium 20 MG 1 tablet Orall y Once a day; Duration: 30 day(s) 11/18/2022 Active Social History Tobacco Use: Social History Observation Description Date Details (start date - stop date) Current Smoker NA - NA Sex Assigned At : Social History Observation Description Sex Assigned At Female Dont use, Tobacco Use/Smoking Question Answer Notes Are you a current every day smoker Additional Findings: Tobacco User Light cigarett e smoker ((1-9 cigs/day) Problems Problem Type SNOMED Code ICD Code Onset Dates Problem Status W/U Status Risk Notes Problem Tobacco user (432786874) Nicotine dependence, unspecified, uncomplicated (F17.200) Active confirmed Problem Gastroesophageal reflux disease (376822213) GERD (gastroesophagea l reflux disease) (K21.9) Active confirmed Plan Of Treatment No Information Medical (General) History Surgical History Surgery Date(Month/Year) Gall bladder 12/2020 Hospitalization History Reason Date(Month/Year)
--- OUTSIDE RECORDS SUMMARY | 2025-02-08 13:29 | XMS_ITS | Encounter Summary ---
Author Organization [facility] Address [address] [place] [address] Care Team Providers Care Death Clearance Coordinator Name Role Phone Antelmo Snell MD Primary Care Provider [phone] Sallie Zuniga NP-C Primary Care Provider [phone] Humberto Cosby MD Primary Care Provider [phone] Encounter Details Date Type Department Care Team ([facility] st Contact Info) Description 08/20/2017 Abstract [facility] CONVERSION [address] [place] [address] , Generic Conversion, Social History Tobacco Use Types Packs/Day Years Used Date Smoking Tobacco: Never Assessed Comments Unknown Sex and Gender Information Value Date Recorded Sex Assigned at Female 08/03/2024 3:48 PM ACCOUNTING TUTOR Legal Sex Female 9:33 PM ACCOUNTING TUTOR Gender Identity Not on file Sexual Orientation Not on file documented as of this encounter Plan of Treatment Not on file documented as of this encounter Visit Diagnoses Not on filedocumented in this encounter Additional Health Concerns Infection Onset Date Last Indicated Resolved Time COVID-19 Rule Out 08/11/2020 08/11/2020 08/12/2020 7:16 PM ACCOUNTING TUTOR documented as of this encounter Care Teams Death Clearance Coordinator Relationship Specialty Start Date End Date Antelmo Snell MD [address] [place] [address] PCP - General OBGYN 07/12/18 12/28/18 Sallie Zuniga NP-C [address] [place] [address] PCP - General FAMILY PRACTICE 12/29/18 08/13/20 Humberto Cosby MD [address] [place] [address] PCP - General FAMILY PRACTICE 08/14/20 documented as of this encounter
--- OUTSIDE RECORDS SUMMARY | 2025-02-08 13:30 | XMS_ITS | Clinical Summary ---
Author Organization [facility] Address [address] [place] [address] Care Team Providers Care Director Of Women'S Services Name Role Phone Unavailable Primary Care Provider Unavailabl e Social History Tobacco Use Types Packs/Day Years Used Date Smoking Tobacco: Never Assessed Comments Unknown Sex and Gender Information Value Date Recorded Sex Assigned at Not on file Legal Sex Female 11:54 AM OFFICE MACHINE SERVICER APPRENTICE Gender Identity Not on file Sexual Orientation Not on file Plan of Treatment Health Maintenance Due Date Last Done Comments Hepatitis C Virus (HCV) Screening 1997 SARS-COV-2 Immunization ( season) 2024 Influenza Immunization (#1) 02/04/202504/06, 04/29/2015, 03/22/2011, Additional history exists Respiratory Syncytial Virus (RSV) Immunization (Adult) (1 - 1-dose 75+ series) 01/03/2072 Hepatitis B Immunization Completed 998, 1997, 1997 Meningococcal Immunization (ACWY) Aged Out 04/06/2016 No longer eligible based on patient's age to complete this topic DTaP/Tdap/Td Immunization Discontinued 2018, 04/29/2015, 04/21/2010, Additional history exists TdaP Immunization Completed 08/30/2018, , 04/21/2010 Human Papillomavirus (HPV) Immunization Completed 11/10/2018, 05/09/2013, 01/10/2013 Pneumococcal Immunization Combined Aged Out No longer eligible based on patient's age to complete this topic Rotavirus Immunization Aged Out No lo nger eligible based on patient's age to complete this topic
--- OUTSIDE RECORDS SUMMARY | 2025-02-08 13:30 | XMS_ITS | Encounter Summary ---
Author Organization [facility] Address [address] [place] [id number] Care Team Providers Care Civil Laboratory Technician Name Role Phone Sallie ZunigaC Primary Care Provider [phone] Humberto Cosby MD Primary Care Provider [phone] Encounter Details Date Type Department Care Team (Late st Contact Info) Description 08/06/2020 Prep for Procedure [facility] Pre-Admission Testing [address] [facility] [address] [place] [address] Jackson Trimble MD [address], [place] [id number] Social History Tobacco Use Types Packs/Day Years [...] Sex Assigned at Female 08/03/2024 3:48 PM PEDIATRIC LICENSED PRACTICAL NURSE Legal Sex Female 9:33 PM PEDIATRIC LICENSED PRACTICAL NURSE Gender Identity Not on file Sexual Orientation Not on file COVID-19 Exposure Response Date Recorded In the last month, have you been in contact with someone who was confirmed or suspected to have Coronavirus / COVID-19? No / Unsure 07/28/2020 1:35 PM PEDIATRIC LICENSED PRACTICAL NURSE documented as of this encounter Functional Status [...] PRE-SURGICAL/PRE-PROCEDURE CORONAVIRUS (COVID 19) (08/11/2020 10:21 AM PEDIATRIC LICENSED PRACTICAL NURSE) CORONAVIRUS SARS COV 2 PCR (RESP) NOT DETECTED NOT DETECTED 08/12/2020 7:16 PM PEDIATRIC LICENSED PRACTICAL NURSE [facility] Comment: A Not Detected (negative) test result [...] providers and patients using the following websites: https://www.ugichem.com/home/Covid-19/HCP/NAAT/fact-sheet2 https://www.ugichem.com/home/Covid-19/Patients/NAAT/ fact-sheet2 This test has been authorized by the FDA under an Emergency Use Authorization (EUA) for use by authorized laboratories. Due to the current public health emergency, [facility] is receiving a high volume of samples [...] about COVID-19 can be found at the [facility] website: www.[employer]/Covid19. Test performed at [facility] [address] [place] [address] Director: ROSA KENNY DO,MPH FIRST TEST NO 08/11/2020 9:06 AM [facility] EMPLOYED IN HEALTHCARE NO 08/11/2020 9:06 AM [facility] SYMPTOMATIC DEFINED BY CDC NO 08/11/2020 9:06 AM [facility] DATE OF SYMPTOM ONSET NO 08/11/2020 11:42 AM [facility] HOSPITALIZATION STATUS NO 08/11/2020 9:06 AM [facility] PATIENT IN ICU NO 08/11/2020 9:06 AM [facility] RESIDENT OF CRITICAL ACCESS HOSPITAL CARE NO 08/11/2020 9:06 AM [facility] NOT 08/11/2020 9:06 AM [facility] PATIENT'S RACE WHITE OR 08/11/2020 9:06 AM [facility] ETHNICITY NONHISPANIC 08/11/2020 9:06 AM PEDIATRIC LICENSED PRACTICAL NURSE [facility] SOURCE (QST) NASOPHARYNGEAL SWAB 08/11/2020 9:06 AM PEDIATRIC LICENSED PRACTICAL NURSE [facility] NASOPHARYNGEAL SWAB / Unknown 08/11/2020 10:21 AM PEDIATRIC LICENSED PRACTICAL NURSE us Jackson Trimble MD MICROBIOLOGY - GENERAL ORDERABL ES Final Result [facility] [address] [place] [address], [facility] [address] [place] [address], documented in this encounter Visit Diagnoses Diagnosis Preop examination- Primary Preoperative examination, unspecified documented in this encounter Additional Health Concerns Infection Onset Date Last Indicated Resolved Time COVID-19 Rule Out 08/11/2020 08/11/2020 08/12/2020 7:16 PM PEDIATRIC LICENSED PRACTICAL NURSE documented as of this encounter Care Teams Civil Laboratory Technician Relationship Specialty Start Date End Date Sallie Zuniga NP-C [address] [place] [address] PCP - General FAMILY PRACTICE 12/29/18 08/13/20 Humberto Cosby MD [address] [place] [id number] PCP - General FAMILY PRACTICE 08/14/20 documented as of this encounter
--- OUTSIDE RECORDS SUMMARY | 2025-02-08 13:30 | XMS_ITS | Patient Health Record ---
Author Organization [facility] Address [address] [place] [address] Care Team Providers Care Employment Law Attorney Name Role Phone Carolyn Wade Primary Care Provider [phone] Reason For Referral No Information Medications Medication SIG (Take, Route, Frequency, Duration) Notes Start Date End Date Status Amoxicillin 500 MG take 1 capsule (500MG) by oral route q 8hrs for 10 days. Oral ([facility]) 03/07/2012 Unknown Adderall XR 25 MG take 1 capsule (25MG ) by oral route every day in the morning upon awakening Oral ([facility]) Unknown Geodon 80 MG take 1 capsule (80MG ) by oral route 2 times every day with food Oral ([facility]) Unknown CeleXA 20 MG take 1 tablet (20MG) by oral route every day Oral ([facility]) Unknown Abilify 15 MG take 1 tablet (15MG) by oral route every day Oral ([facility]) Unknown metroNIDAZOLE 500 MG take 1 tablet (500M G) by oral route 2 times every day Oral ([facility]) 08/09/2012 Unknown Clotrimazole 1 % apply to the affecte d area BID for 7 days. External ([facility]) 12/07/2011 Unknown Vitamins (Dis) Orally Active Depo-Provera 150 MG/ML inject 1 millilit er (150MG) by intramuscular route every 12 weeks Intramuscular ([facility]) 08/09/2012 Not-Taking TEGretol Active Benzoyl Peroxide-Erythromycin 5-3 % apply by topical route 2 times every day to the affected area(s) in the morning and evening External ([facility]) 05/09/2013 Unknown Immunizations Vaccine Route Administration Date Status Comme nts DTaP, 5 pertussis antigens Unknown 1997 Administe red Status:Completed DTaP, 5 pertussis antigens Unknown 1997 Administe red Status:Completed DTaP, 5 pertussis antigens Unknown 1997 Administe red Status:Completed DTaP, 5 pertussis antigens Unknown 04/18/1998 Administe red Status:Completed DTaP, 5 pertussis antigens Unknown 06/29/2001 Administe red Status:Completed HEP A VACC, PED/ADOL, 2 DOSE Unknown 04/21/2010 Administered Status:Completed HEP A VACC, PED/ADOL, 2 DOSE Unknown 03/22/2011 Administered Status:Completed HEPB VACC PED/ADOL 3 DOSE IM Unknown 1997 Administered Status:Completed HEPB VACC PED/ADOL 3 DOSE IM Unknown 1997 Administered Status:Completed HEPB VACC PED/ADOL 3 DOSE IM Unknown 1997 Administered Status:Completed Hib, unspecified formulation Unknown 1997 Administered Status:Completed Hib, unspecified formulation Unknown 1997 Administered Status:Completed Hib, unspecified formulation Unknown 1997 Administered Status:Completed Hib, unspecified formulation Unknown 04/18/1998 Administered Status:Completed HPV (human papillomavirus), quadrivalent, 3 dose schedule Unknown 01/10/2013 Administered Status:Completed HPV (human papillomavirus), quadrivalent, 3 dose schedule Unknown 05/09/2013 Administered Status:Completed Influenza (split), preservative free, 6-35 months Unknown 04/10/2004 Administered Status:Completed Influenza (split), preservative free, 6-35 months Unknown 06/17/2009 Administered Status:Completed Influenza (split), preservative free, 6-35 months Unknown 04/21/2010 Administered Status:Completed Influenza (split), preservative free, 6-35 months Unknown 03/22/2011 Administered Status:Completed IPV, VFC Unknown 1997 Administered Status:Compl eted IPV, VFC Unknown 1997 Administered Status:Compl eted IPV, VFC Unknown 06/29/2001 Administered Status:Compl eted Meningococcal MCV4O Unknown 04/21/2010 Administered Sta tus:Completed MMR VACCINE, SC Unknown 04/18/1998 Administered Status: Completed MMR VACCINE, SC Unknown 06/29/2001 Administered Status: Completed OPV Unknown 10/02/1998 Administered Status:Compl eted TDAP VACCINE >7 IM Unknown 04/21/2010 Administered Stat us:Completed VARICELLA IMMUNIZATION Unknown 04/21/2010 Administered Status:Completed VARICELLA IMMUNIZATION Unknown 03/22/2011 Administered Status:Completed Social History Tobacco use other than smoking: Question Answer Notes Are you an other tobacco user? 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) 012 Active confirmed ([facility]) Added By: Maryse Dillon Problem Galactorrhea not associated with childbirth (29272319) Galactorrhea not associated with childbirth (611.6) 013 Active confirmed ([facility]) Added By: Clover Mendoza Problem Unspecified procreative management (V26.9) 013 Active confirmed ([facility]) Added By: Shirlene Montano Problem 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) Impacted teeth (K01.1) Active confirmed Problem Contraception care management (204544505) Encounter for other contraceptive management (Z30.8) Active confirmed Plan Of Treatment No Information Insurance Providers Payer Name Payer Address Payer Phone Subscriber Number Group Number Insured Name Patient Relationship to Insured Coverage Start Date Coverage End Date Medicaid [employer] Primary Only [address] [place] [address] [id number] Stacy Redman Self - patient is the insured Dental [employer] Of [address] [address] [id number] Stacy Redman Self - patient is the insured Medical (General) History Medical History History ICD Code surgery on toes HBP Surgical History Surgery Date(Month/Year) toe surgery
--- OUTSIDE RECORDS SUMMARY | 2025-02-08 13:31 | XMS_ITS | Clinical Summary ---
Author Organization [facility] Address [address] [place] [address] Care Team Providers Care Zyglo Inspector Name Role Phone Humberto Cosby MD Primary Care Provider [phone] Allergies Active Allergy Reactions Criticality Noted Date [...] Date Encounter for elective induction of labor ([facility]/ [facility]) 08/28/2018 Gonorrhea 08/17/2018 Overview (08/17/2018): Pt [...] Sex Assigned at Female 08/03/2024 3:48 PM CAREER TECHNICAL EDUCATION TEACHER Legal Sex Female 9:33 PM CAREER TECHNICAL EDUCATION TEACHER Gender Identity Not on file Sexual Orientation Not on file Last Filed Vital Signs Vital Sign Reading Time Taken Comments Blood Pressure 146/86 08/03/2024 3:48 PM CAREER TECHNICAL EDUCATION TEACHER Pulse 100 08/03/2024 3:48 PM CAREER TECHNICAL EDUCATION TEACHER Temperature 36.5 C (97.7 F) 08/03/2024 3:48 PM CAREER TECHNICAL EDUCATION TEACHER Respiratory Rate 18 08/03/2024 3:48 PM CAREER TECHNICAL EDUCATION TEACHER Oxygen Saturation 100% 08/03/2024 3:48 PM CAREER TECHNICAL EDUCATION TEACHER Inhaled Oxygen Concentration - - Weight 130 kg (286 lb 9.6 oz) 08/03/2024 3:48 PM CAREER TECHNICAL EDUCATION TEACHER Height 157.5 cm (5' 2) 08/03/2024 3:48 PM CAREER TECHNICAL EDUCATION TEACHER Body Mass Index 52.42 08/03/2024 3:48 PM CAREER TECHNICAL EDUCATION TEACHER Plan of Treatment Health Maintenance Due Date Last Done Comments Cervical Cancer Screening Pap Smear (Age 21 to 29) Every 3 Years 1997 Cervical Cancer Screening 1997 Annual Physical 01/03/2000 Hepatitis C 2015 Hepatitis B Vaccines (1 of 3 - 19+ 3-dose series) 01/03/2016 COVID-19 Vaccine ( - season) 2025 DTaP, Tdap and Td Vaccines (7 - [...] complete this topic Insurance [facility] Advance Directives * Full Code (Latest Code Status on File) Date Activated Date Inactivated Comments 08/28/2018 8:40 PM 08/29/2018 8:51 AM * Full Code Date Activated Date Inactivated Comments 07/24/2018 2:59 PM 07/24/2018 8:50 PM Care Teams Zyglo Inspector Relationship Specialty Start Date End Date Humberto Cosby MD PCP - General FAMILY PRACTICE 08/14/20
== END 2025-02-08 13:15 | disposition home or self-care (01) ==
PROVIDERS: PCP Physician Assistant; Visit Provider Physician Assistant
DX: Z87.42 Personal history of other diseases of the female genital tract (principal); D27.1 Benign neoplasm of left ovary
CPT/HCPCS: 76830; 76856